=== PATIENT | female | born 1995 | race Caucasian/White ===

== ENCOUNTER → 2018-04-08 09:10 | Outpatient (CLI) | payer BC, MEDICAID, SELFPAY ==
[2018-04-08 10:39] LABS: TSH (W/Ref FT4) 1.37 uIU/mL (0.358-3.74)
[2018-04-09 16:42] LABS: Bile Acids, Total 9 mcmol/L (<=10)
== END ==
PROVIDERS: PCP Family Medicine; Visit Provider Midwife
DX: E03.9 Hypothyroidism, unspecified (principal); O99.713 Diseases of the skin and subcutaneous tissue complicating pregnancy, third trimester
CPT/HCPCS: 36415; 82239; 84443

== ENCOUNTER 2018-04-23 16:14 | Outpatient (REF) | payer BC, SELFPAY | END 2018-04-23 16:34 | LOC: LBN 16:14 | PROVIDERS: PCP Family Medicine; Visit Provider Advanced Practice Midwife | DX: Z34.93 Encounter for supervision of normal pregnancy, unspecified, third trimester (principal); Z36.85 Encounter for antenatal screening for Streptococcus B | CPT/HCPCS: 87081 ==

== ENCOUNTER 2018-04-24 09:06 | Outpatient (CLI) | payer BC, SELFPAY ==
[2018-04-26 21:05] LABS: Bile Acids, Total <1 mcmol/L (<=10)
== END 2018-04-24 09:26 ==
PROVIDERS: PCP Family Medicine; Visit Provider Advanced Practice Midwife
DX: Z34.93 Encounter for supervision of normal pregnancy, unspecified, third trimester (principal); Z3A.36 36 weeks gestation of pregnancy
CPT/HCPCS: 36415; 82239

== ENCOUNTER 2018-05-05 04:51 | Inpatient (IN) | payer BC, MEDICAID, SELFPAY ==
[2018-05-05 06:29] LABS: ROM Plus Positive
[2018-05-05 09:21] LABS: HCT 35.8 % (36.0-46.0); HGB 11.9 g/dL (12.0-15.5); Mean Corp. HGB Concentration 33.2 g/dL (32.0-36.0); Mean Corpuscular Hemoglobin 29.5 pg (27.0-33.0); Mean Corpuscular Volume 88.6 fL (80-95); Platelet Count 196 x1000/uL (130-400); RBC 4.04 m/cumm (4.00-5.20); RBC Distribution Width 13.5 % (11.7-14.6)
[2018-05-05 09:36] LABS: ALT 19 U/L (12-78); AST 19 U/L (15-37); Albumin 2.5 g/dL (3.4-5.0); Alkaline Phosphatase 173 U/L (46-116); Anion Gap 9.2 mmol/L (3-11); BUN 7 mg/dL (7-18); Bilirubin, Total 0.1 mg/dL (0.2-1.0); CO2 22.8 mmol/L (21.0-32.0); CREATININE 0.56 mg/dL (0.55-1.02); Calcium 8.3 mg/dL (8.5-10.1); Chloride 105 mmol/L (98-107); Glucose 146 mg/dL (70-100); Potassium 3.6 mmol/L (3.5-5.1); Sodium 137 mmol/L (136-145); Total Protein 6.3 g/dL (6.4-8.2)
[2018-05-05] MEDS: Lactated Ringers 1,000 ML 125 ML IV ×2 (10:47→18:41)
[2018-05-05] MEDS: Normal Saline Flush 10 ML SYR IVP (10:49)
[2018-05-06] MEDS: Lactated Ringers 1,000 ML 125 ML IV ×2 (02:42→06:17)
[2018-05-06] MEDS: Bupivacaine 0.25% Pres-Free 30 ML VIAL (04:15)
[2018-05-06] MEDS: fentaNYL 100 MCG/2 ML VIAL EP (04:15)
[2018-05-06 10:59] LABS: HGB 11.5 g/dL (12.0-15.5); Mean Corp. HGB Concentration 32.9 g/dL (32.0-36.0); Mean Corpuscular Hemoglobin 28.9 pg (27.0-33.0); Mean Corpuscular Volume 87.9 fL (80-95); Mean Platelet Volume 11.9 fL (8.0-11.0); Platelet Count 179 x1000/uL (130-400); RBC 3.98 m/cumm (4.00-5.20); RBC Distribution Width 13.6 % (11.7-14.6); White Blood Cell Count 16.17 k/cumm (4.4-10.8)
[2018-05-07] MEDS: Acetaminophen 325 MG TAB 650 MG PO ×2 (00:53→06:39)
[2018-05-07] MEDS: Ibuprofen 600 MG TAB PO ×2 (00:54→06:38)
[2018-05-07 12:06] LABS: HCT 31.5 % (36.0-46.0); HGB 10.4 g/dL (12.0-15.5); Mean Corpuscular Hemoglobin 29.5 pg (27.0-33.0); Mean Corpuscular Volume 89.5 fL (80-95); Mean Platelet Volume 11.7 fL (8.0-11.0); Platelet Count 191 x1000/uL (130-400); RBC 3.52 m/cumm (4.00-5.20); White Blood Cell Count 12.99 k/cumm (4.4-10.8)
[2018-05-08] MEDS: Prenatal Multivitamin w/CA,FE TAB 1 TAB PO (10:16)
[2018-05-08] MEDS: Hamamelis Leaf/Glycerin 100 EACH BOX PR (11:26)
[2018-05-08] MEDS: Docusate Sodium 100 MG CAP PO (11:26)
== END 2018-05-08 13:25 | disposition home or self-care (01) | DRG 775 ==
PROVIDERS: Advanced Practice Midwife; Admitting Provider Midwife; PCP Family Medicine; Visit Provider Advanced Practice Midwife
DX: O70.0 First degree perineal laceration during delivery (principal); Z37.0 Single live birth; O42.02 Full-term premature rupture of membranes, onset of labor within 24 hours of rupture; O75.89 Other specified complications of labor and delivery; R00.0 Tachycardia, unspecified; Z3A.38 38 weeks gestation of pregnancy; O99.344 Other mental disorders complicating childbirth; F41.9 Anxiety disorder, unspecified; Z14.1 Cystic fibrosis carrier
CPT/HCPCS: 36415; 80053; 84112; 85027; 86850; 86900; 86901; J3010; J3490

== ENCOUNTER 2019-01-20 09:26 | Outpatient (CLI) | payer BC, SELFPAY ==
[2019-01-20 11:30] LABS: HCT 39.7 % (36.0-46.0); HGB 13.1 g/dL (12.0-15.5); Mean Corpuscular Hemoglobin 28.9 pg (27.0-33.0); Mean Corpuscular Volume 87.4 fL (80-95); Mean Platelet Volume 11.3 fL (8.0-11.0); Platelet Count 229 x1000/uL (130-400); RBC 4.54 m/cumm (4.00-5.20); White Blood Cell Count 5.06 k/cumm (4.4-10.8)
[2019-01-20 12:28] LABS: TSH 10.56 uIU/mL (0.358-3.74)
== END 2019-01-20 09:46 ==
PROVIDERS: PCP Family Medicine; Visit Provider Family Medicine
DX: E03.9 Hypothyroidism, unspecified (principal); R01.1 Cardiac murmur, unspecified
CPT/HCPCS: 36415; 85027; 84443

== ENCOUNTER 2019-07-05 15:13 | Outpatient (REF) | payer BC, SELFPAY ==
--- NOTE | 2019-07-05 14:10 | PAPFT_PTH ---
PATIENT: Kassandra Ortiz LOC: [facility] U#:[id number] AGE/SX: 23/F ROOM: RE07/05/[address]: Rosemarie Christiansen RN : 1995 BED: DIS: 07/05/2019 SPEC #: [id number] RECD: 07/05/19 18:10 STATUS: ADRIANE REPatrick #: [id number] EDELMIRA: 07/05/19 14:[address]: Rosemarie Christiansen DEPT: [facility] Cytology RECD BY: Herlinda Mcnamara ENTERED: 07/05/19 18:11 SP TYPE: PAPFT OTHR DR: Sam Butt MD Tissues: 1 - CX/ENDOCX FOR PAP SMEARS Procedures: PAP THIN PREP/UVM Screening Comments: [id number] (CHLAMYDIA/GC)
[2019-07-06 14:04] LABS: Chlamydia Result Negative (Negative)
[2019-07-06 15:43] LABS: GC Result Negative (Negative)
== END 2019-07-05 15:33 ==
LOC: LBN 15:13
PROVIDERS: PCP Family Medicine; Visit Provider Advanced Practice Midwife
DX: Z11.3 Encounter for screening for infections with a predominantly sexual mode of transmission (principal); Z12.4 Encounter for screening for malignant neoplasm of cervix
CPT/HCPCS: 87491; 87591; 88142

== ENCOUNTER 2020-05-07 01:53 | Outpatient (CLI) | payer BC, SELFPAY ==
[2020-05-07 12:21] LABS: TSH 2.04 uIU/mL (0.36-3.74)
== END 2020-05-07 02:13 ==
PROVIDERS: PCP Family Medicine; Visit Provider Family Medicine
DX: E03.9 Hypothyroidism, unspecified (principal)
CPT/HCPCS: 36415; 84443

== ENCOUNTER 2021-12-05 02:30 | Outpatient (CLI) | payer MEDICAID, SELFPAY ==
[2021-12-05 11:49] LABS: Anion Gap 6.3 mmol/L (3-11); BUN 14 mg/dL (7-18); CO2 28.7 mmol/L (21.0-32.0); CREATININE 0.6 mg/dL (0.55-1.02); Calcium 9.4 mg/dL (8.5-10.1); Chloride 103 mmol/L (98-107); Glucose 94 mg/dL (74-106); Sodium 138 mmol/L (136-145); TSH (W/Ref FT4) 0.95 uIU/mL (0.36-3.74)
== END 2021-12-05 02:31 | disposition home or self-care (01) ==
PROVIDERS: PCP Family Medicine
DX: G47.00 Insomnia, unspecified (principal); Z00.00 Encounter for general adult medical examination without abnormal findings
CPT/HCPCS: 36415; 80048; 84443

== ENCOUNTER 2022-01-09 16:29 | Outpatient (CLI) | payer MEDICAID, SELFPAY ==
[2022-01-09 15:31] LABS: FREE T4 1.03 ng/dL (0.76-1.46); TSH 1.01 uIU/mL (0.36-3.74)
== END 2022-01-09 16:30 | disposition home or self-care (01) ==
LOC: LBO 16:32
PROVIDERS: PCP Family Medicine; Visit Provider Nurse Practitioner Family
DX: E03.9 Hypothyroidism, unspecified (principal)
CPT/HCPCS: 36415; 84439; 84443

== ENCOUNTER 2022-01-22 12:06 | Outpatient (CLI) | payer MEDICAID, SELFPAY | END 2022-01-22 12:07 | disposition home or self-care (01) | LOC: LBO 12:07 | PROVIDERS: PCP Family Medicine; Visit Provider Advanced Practice Midwife | DX: O20.8 Other hemorrhage in early pregnancy; Z3A.01 Less than 8 weeks gestation of pregnancy | CPT/HCPCS: 36415; 84702 ==

== ENCOUNTER 2022-03-11 13:48 | Outpatient (CLI) | payer MEDICAID, SELFPAY ==
[2022-03-11 15:39] LABS: Abs Immature Grans 0.03 10^3/uL (0.0-0.06); Absolute Basophil Count 0.03 10^3/uL (0.0-0.2); Absolute Eosinophil Count 0.13 10^3/uL (0.0-0.7); Absolute Lymphocyte Count 1.41 10^3/uL (1.2-3.4); Absolute Neutrophil Count 4.25 10^3/uL (1.2-6.7); Basophils % 0.5; HGB 12.6 g/dL (11.2-15.7); Immature Grans % 0.5; Lymphocytes % 22.2; MCH 30.2 pg (27.0-33.0); MCHC 34.1 % (32.0-36.0); MCV 89 fL (80-95); MPV 10.6 fL (8.0-11.0); Monocytes % 7.9; Neutrophils % 66.9; Platelet Count 263 10^3/uL (130-400); RBC 4.17 10^6/uL (3.93-5.22); RDW 12.8 % (11.7-14.6); RDW-SD 41.6 fL; WBC 6.35 10^3/uL (4.4-10.8)
== END 2022-03-11 13:49 | disposition home or self-care (01) ==
LOC: LBO 13:50
PROVIDERS: PCP Family Medicine; Visit Provider Obstetrics & Gynecology
DX: O02.1 Missed abortion (principal); Z01.818 Encounter for other preprocedural examination; Z01.812 Encounter for preprocedural laboratory examination
CPT/HCPCS: 36415; 86850; 86900; 86901; 85025

== ENCOUNTER 2022-03-11 16:46 | Outpatient (REF) | payer MEDICAID, SELFPAY ==
[2022-03-11 20:14] LABS: Source Nasal/Nares
[2022-03-12 07:07] LABS: COVID-19 PCR Negative (Negative)
== END 2022-03-11 16:47 | disposition home or self-care (01) ==
LOC: LBN 16:46
PROVIDERS: PCP Family Medicine; Visit Provider Obstetrics & Gynecology
DX: Z20.822 Contact with and (suspected) exposure to COVID-19 (principal); Z01.818 Encounter for other preprocedural examination
CPT/HCPCS: 87635

== ENCOUNTER 2022-03-12 09:10 | Day surgery (SDC) | payer MEDICAID, SELFPAY ==
[2022-03-12 09:32] VITALS: BP 121/87; PULSE 105; RESP 18; TEMP 36.7; O2SAT 100
[2022-03-12] MEDS: DOXYCYCLINE 100 MG in Normal Saline 100 ML IVPB (09:40)
[2022-03-12] MEDS: Lactated Ringers 1,000 ML 125 ML IV (09:41)
--- NOTE | 2022-03-12 09:59 | W.ANESPRE ---
General Info Date of Service Date Performed: 03/12/22 Height: 5 ft Weight: 51.6 kg Body Mass Index (BMI): 22.1 Surgical Procedure: Operation Date: 03/12/22 10:25 Proposed Procedure Side Surgeon p D&C, Suction Completion Adore Singh DO Meds Allergies and Home Medications Allergies Allergy/AdvReac Type Severity Reaction Status Date / Time No Known Allergies Allergy Unverified 03/11/22 15:36 Home Medication Medication Instructions Recorded levothyroxine 50 mcg tablet 50 mcg PO DAILY #90 tabs 05/20/21 vits no.126-ferrous fum 1 tab PO DAILY 01/09/22 28 mg iron-folic acid 800 mcg tablet (Classic ) Current Visit Medications: Current Medications Generic Name Dose Route Start Last Admin Trade Name Estefany PRN Reason Stop Dose Admin Ringer's Solution 1,000 mls @ 125 mls/hr 03/12/22 06:00 03/12/22 09:41 IV 04/11/22 23:59 125 mls/hr INFUSION ERIC Administration Doxycycline Hyclate 100 mg/ 100 mls @ 100 mls/hr 03/12/22 08:00 03/12/22 09:40 Sodium Chloride IVPB 03/12/22 16:00 100 mls/hr PREOP ERIC Administration IV Miscellaneous Supplies 1 each 03/12/22 06:00 Iv Access IV 04/11/22 23:59 DIRECTED ERIC Sodium Chloride 0 ml 03/12/22 06:00 Normal Saline Flush 10 Ml Syr IV 04/11/22 23:59 PRN PRN Sodium Chloride 0 ml 03/12/22 06:00 Normal Saline 10 Ml Vial IJ 04/11/22 23:59 DIRECTED PRN Sterile Water 0 ml 03/12/22 06:00 Water,Injection,Sterile 10 Ml Vial IJ 04/11/22 23:59 DIRECTED PRN PFSH Active Problems Active Problems: Problem Status Onset Code Lactose intolerance 04/08/12 E73.9 Systolic ejection murmur R01.1 Insomnia G47.00 Positive test Z32.01 Threatened , antepartum O20.0 Missed O02.1 Pre-op testing Z01.818 Medical History Medical History Disorder of stature Spon w/o complication (07/27/17) Surgical History Surgical History (Updated 03/12/22 @ 09:31 by Shira Mota RN) [place] teeth extracted Tobacco Smoking/Tobacco Use Status: Never Passive smoking exposure: Yes Second hand exposure: Yes Alcohol Alcohol Intake: current Alcohol intake frequency: a few times a month Alcohol type: beer and wine Substance Use Substance use: Daily Substance use type: former substance user and marijuana Counseling provided: provider counseling Details: last smoked marijuana 3 days ago Prental History History 4 Para 1 Hx # Term Pregnancies 1 Multiple births 0 Hx # Pregnancies 0 Ectopic pregnancies 0 AB induced 0 Hx Number of Living Children 1 AB spontaneous 3 Past Pregnancies Del. Date GA/Weeks # Preg Succ Route Wgt Sex Labor Lgth Anesthesia Location [facility] 05/06/18 38 No vaginal 2806.603 g Female 33 hours 55 min regional Verónica Sapp 02/22/22 10 No No Delivery Date: 05/06/18 Last Updated by: Kaye Sapp IOL for PROM Vital Signs and Lab Results Vital Signs Most Recent Vital Signs in EMR: Most Recent Vital Signs Temp Pulse Resp BP Pulse Ox 36.7 C 105 H 18 121/87 100 03/12/22 09:32 03/12/22 09:32 03/12/22 09:32 03/12/22 09:32 03/12/22 09:32 Lab Results Blood Type / Crossmatch: Patient ABO/Rh B Positive 03/11/22 Antibody Screen NEGATIVE 03/11/22 Complete Blood Count: White Blood Count 6.35 10^3/uL (4.4-10.8) 03/11/22 15:33 Red Blood Count 4.17 10^6/uL (3.93-5.22) 03/11/22 15:33 Hemoglobin 12.6 g/dL (11.2-15.7) 03/11/22 15:33 Hematocrit 37.0 % (36.0-46.0) 03/11/22 15:33 Platelet Count 263 10^3/uL (130-400) 03/11/22 15:33 Complete Metabolic Panel: No Data to Display Liver Function Panel: No Data to Display Coagulation Panel: No Data to Display Cardiac Panel: No Data to Display Arterial Blood Gas: No Data to Display Venous Blood Gas: No Data to Display Pancreas Panel: No Data to Display Thyroid Panel: No Data to Display Infectious Disease: Coronavirus (COVID-19)(PCR) Negative (Negative) 03/11/22 15:05 Coronavirus 2019 Source Nasal/Nares 03/11/22 15:05 Blood Cultures: No Data to Display Toxicology Panel: No Data to Display Panel: No Data to Display Anesthesia Assessment and Plan Anesthesia History Personal History: No History of Anesthesia Complications Family History: No Family History of Anesthesia Complications Exercise Tolerance Exercise Tolerance: Metabolic Equivalents>4 Pertinent Negatives Pertinent Negatives: No Symptoms of GERD, No Major Cardiovascular Symptoms or Complaints, No Major Pulmonary Symptoms or Complaints and No History of CVA/TIA Cardiac & Pulmonary Exam Cardiac Exam: Normal S1/S2 Heart Sounds Pulmonary Exam: Clear Bilateral Breath Sounds Implantable Cardiac Device Does patient have a Pacemaker or an ICD?: No Airway Exam Known Difficult Airway: No Mallampati Class: 2 Mouth Opening: Normal (> 3cm) Thyromental Distance: Greater than 3 cm Neck Range of Motion: Full ROM Neck Circumference: Normal Teeth Condition: Normal Dentition ASA Classification ASA Score: ASA 1 Emergency Case?: No NPO Status NPO Status: NPO Clears >2 hours, Solids >8 hours Status Status: Other (Non viable 6 week ) Anesthesia Plan Resuscitation Status: Full Code Anesthesia Technique: General Anesthesia Airway Planned: Natural Airway Monitors Used: Standard Monitors
[2022-03-12 10:28] VITALS: BMI 22.1
--- NOTE | 2022-03-12 10:59 | POCSPONT_PTH ---
PATIENT: Kassandra Ortiz LOC: [facility] U#:[id number] AGE/SX: 26/F ROOM: RE03/12/[address]: Adore Singh DO : 1995 BED: DIS: 03/12/2022 SPEC #: [id number] RECD: 03/12/22 12:57 STATUS: ADRIANE REQ #: [id number] EDELMIRA: 03/12/22 10:[address]: Adore Singh DEPT: Surgical Specimen RECD BY: Herlinda Mcnamara ENTERED: 03/12/22 12:58 SP TYPE: POCSPBETTY OLIVAS DR: Ashly Hood Tissues: 1 - ,SPONTANEOUS Procedures: GROSS AND MICRO LEVEL 4 Comments: [id number]
[2022-03-12 11:13] VITALS: BP 115/86; PULSE 99; RESP 16; TEMP 36.4; O2SAT 100
--- NOTE | 2022-03-12 11:13 | ROE_ITS ---
Date of service: 03/12/22 Time of Service: 11:13 Operative Note Operative Note DATE OF PROCEDURE: 03/12/22 PRE-OP DIAGNOSIS: Incomplete miscarriage POST-OP DIAGNOSIS: same PROCEDURE: Dilation and curettage with suction SURGEON: Adore Singh ANESTHESIA TYPE: General:No Airway Refer to Anesthesia Record ESTIMATED BLOOD LOSS: 100 PATHOLOGY: other (Products of conception) COMPLICATIONS: None Patient was transported to: same day Patient's condition: stable Indications: Incomplete miscarriage Findings: Moderate products of conception Procedure Description: Patient is a 26-year-old female known to our practice who is known to have an incomplete miscarriage. She had undergone watchful waiting for her 6-week embryonic demise with no spontaneous miscarriage. Risk benefits and alternatives of completion dilation and curettage were explained to the patient. She did request surgical intervention. Full informed consent was obtained. She was taken the operating suite with an IV running where she was placed in the dorsal supine position. General anesthesia administered. She was then placed in the modified dorsal lithotomy position and prepped and draped in the usual sterile fashion. Exam under anesthesia revealed a uterus that was midline and mobile and approximately 6 to 8 weeks size. Speculum was inserted into the vaginal vault and an Allis clamp used to grasp the anterior lip of the cervix. Cervical os dilated to the point that a 7 Taiwanese suction curette could be passed with ease and with gentle suction to a pressure of 60 mmHg the uterine contents were evacuated. With a second sharp curettage, coarse cry of the uterus could be felt in all 4 quadrants. Second passage of the suction curette was made with scant return of tissue. At this point, Allis clamp was removed and exam under anesthesia revealed a uterus that was midline and mobile and well contracted. Speculum was removed and the patient was returned to the dorsal supine position. She awoke from anesthesia without difficulty. She was taken to the postanest hesia care unit in stable condition. Findings: 6 to 8 weeks size uterus, and moderate products of conception Complications: None apparent EBL: 100 mL Pathology: Products of conception Fluids: Crystalloid per anesthesia
--- NOTE | 2022-03-12 11:36 | W.ANESPOSTOP ---
Postoperative Evaluation Date, Time and Location Date Performed: 03/12/22 Time Performed: 11:36 Patient Location: Day Surgery Unit Vital Signs Most Recent Imported Vital Signs: Most Recent Vital Signs Temp Pulse Resp BP Pulse Ox 36.4 C L 99 H 18 115/86 100 03/12/22 11:13 03/12/22 11:13 03/12/22 09:32 03/12/22 11:13 03/12/22 11:13 Pain Score Most Recent Pain Score: Most Recent Pain Score Pain Level 0 03/12/22 09:32 Assessment Mental Status: Awake (Alert & Oriented to Patient Baseline) Airway and Respiratory Function: Patent airway with normal (patient baseline) respiratory exam Cardiovascular Function: Hemodynamically Stable Hydration Status: Adequately Hydrated Nausea & Vomiting: No Nausea or Vomiting Pain: Pain is tolerable per patient (Cramping, tolerable) Peripheral Nerve Block: Patient did not receive a nerve block
[2022-03-12 11:50] VITALS: BP 123/86; PULSE 85; RESP 18; TEMP 36.4; O2SAT 100
== END 2022-03-12 12:30 | disposition home or self-care (01) ==
PROVIDERS: PCP Family Medicine; Visit Provider Obstetrics & Gynecology
PROC: (CPT 59841; principal; 2022-03-12 10:15)
DX: O03.4 Incomplete spontaneous abortion without complication (principal); Z3A.01 Less than 8 weeks gestation of pregnancy
CPT/HCPCS: 59812; 88305; J1100; J1885; J2250; J2405; J2704

== ENCOUNTER 2022-05-21 16:36 | Outpatient (REF) | payer MEDICAID, SELFPAY ==
--- NOTE | 2022-05-21 11:50 | PAPFT_PTH ---
PATIENT: Kassandra Ortiz LOC: [facility] U#:[id number] AGE/SX: 26/F ROOM: RE05/21/[address]: Ashly Hood : 1995 BED: DIS: 05/21/2022 SPEC #: [id number] RECD: 05/22/22 13:15 STATUS: ADRIANE REPatrick #: [id number] EDELMIRA: 05/21/22 11:[address]: Ashly Hood DEPT: [facility] Cytology RECD BY: Herlinda Mcnamara Tissues: 1 - CX/ENDOCX FOR PAP SMEARS Procedures: PAP THIN PREP/UVM Screening Comments: [id number]
== END 2022-05-21 16:37 | disposition home or self-care (01) ==
LOC: LBN 16:36
PROVIDERS: PCP Family Medicine; Visit Provider Family Medicine
DX: Z12.4 Encounter for screening for malignant neoplasm of cervix (principal)
CPT/HCPCS: 88142

== ENCOUNTER 2022-08-26 20:12 | Outpatient (CLI) | payer MEDICAID, SELFPAY | END 2022-08-26 20:13 | disposition home or self-care (01) | LOC: LBO 20:13 | PROVIDERS: PCP Family Medicine; Visit Provider Obstetrics & Gynecology | DX: O20.0 Threatened abortion (principal) | CPT/HCPCS: 36415; 84702 ==

== ENCOUNTER 2022-09-08 15:02 | Outpatient (CLI) | payer MEDICAID, SELFPAY ==
--- NOTE | 2022-09-08 13:30 | DI.US_ITS ---
Exam(s) US OB 1ST TRIMESTER EXAM: US OB 1ST TRIMESTER CLINICAL HISTORY: ? Subchoriomic bleed vs 2nd gest sac Z34.81 O20.0 THREATENED . COMPARISON: No exams were available for comparison TECHNIQUE: Transabdominal Transvaginal first trimester obstetrical ultrasound performed. FINDINGS: Sonographic images demonstrate a single intrauterine gestation. There is an adjacent crescentic dana ection consistent with subchorionic hemorrhage. This measures 2.7 x 4.7 x 4.5 cm A yolk sac and pole are seen. Sonographically assessed gestational age based upon crown-rump length of 2.4 cm is: 9 weeks 1 day Estimated date of delivery based on this ultrasound is: 12 April 2023 Estimated date of delivery based upon LMP: 13 April 2023 heart rate motion is Dopplered at: 175 bpm. A small amount of free fluid is noted in the cul-de-sac. Both ovaries appear sonographically normal. Pelvic Measurments Uterus: 12.6 x 6.9 x 9.2 cm Rt Ovary: 2.5 x 2.4 x 1.7 cm Lt Ovary: 2.8 x 1.7 x 2.2 cm 2.5 centimeter corpus luteal cyst. IMPRESSION: Single live intrauterine gestation 9 weeks 1 day Subchorionic hemorrhage. DATA REPOSITORY:
== END 2022-09-08 15:22 ==
LOC: DI 15:03
PROVIDERS: PCP Family Medicine; Visit Provider Obstetrics & Gynecology
DX: O46.8X1 Other antepartum hemorrhage, first trimester (principal); Z3A.09 9 weeks gestation of pregnancy
CPT/HCPCS: 76801

== ENCOUNTER 2022-09-23 03:46 | Outpatient (CLI) | payer MEDICAID, SELFPAY ==
[2022-09-23 10:32] LABS: Abs Immature Grans 0.04 10^3/uL (0.0-0.06); Absolute Basophil Count 0.03 10^3/uL (0.0-0.2); Absolute Eosinophil Count 0.26 10^3/uL (0.0-0.7); Absolute Lymphocyte Count 1.71 10^3/uL (1.2-3.4); Absolute Monocyte Count 0.38 10^3/uL (0.1-0.8); Absolute Neutrophil Count 6.69 10^3/uL (1.2-6.7); Basophils % 0.3; Eosinophils % 2.9; HCT 36.4 % (36.0-46.0); Immature Grans % 0.4; Lymphocytes % 18.8; MCH 29.3 pg (27.0-33.0); MCV 89 fL (80-95); MPV 10.6 fL (8.0-11.0); Monocytes % 4.2; Neutrophils % 73.4; Platelet Count 293 10^3/uL (130-400); RDW 12.5 % (11.7-14.6); RDW-SD 40.6 fL; WBC 9.11 10^3/uL (4.4-10.8)
[2022-09-23 11:33] LABS: TSH (W/Ref FT4) 0.84 uIU/mL (0.36-3.74)
[2022-09-24 09:50] LABS: HIV-1/2 Ag & Ab Screen Negative (Negative)
[2022-09-24 09:54] LABS: Hepatitis B Surface Ag Negative (Negative)
[2022-09-24 10:30] LABS: Hepatitis C Ab w Rflx HCV PCR Negative (Negative)
[2022-09-24 10:42] LABS: Rubella IgG Ab (UVM) Positive (See Note); Varicella IgG Antibody Positive (See Note)
[2022-09-24 14:51] LABS: Syphilis IgG w/Reflex Nonreactive (Nonreactive)
== END 2022-09-23 03:47 | disposition home or self-care (01) ==
LOC: LBO 03:46
PROVIDERS: PCP Family Medicine; Visit Provider Advanced Practice Midwife
DX: O99.281 Endocrine, nutritional and metabolic diseases complicating pregnancy, first trimester (principal); E03.9 Hypothyroidism, unspecified; Z3A.11 11 weeks gestation of pregnancy
CPT/HCPCS: 36415; 86787; 86803; 86850; 86900; 86901; 87340; 87389; 84443; 85025; 86762; 86780

== ENCOUNTER 2022-09-23 16:17 | Outpatient (REF) | payer MEDICAID, SELFPAY ==
[2022-09-23 13:23] LABS: *AMPHETAMINES SCREEN URINE Negative (Negative); *BARBITURATES SCREEN URINE Negative (Negative); *BENZODIAZEPINES SCREEN URINE Negative (Negative); Cannabinoids THC Negative (Negative); Cocaine Screen,Urine Negative (Negative); METHADONE URINE SCREEN Negative (Negative); OPIATES URINE SCREEN Negative (Negative)
[2022-09-23 13:24] LABS: Tricyclic Antidepressants Negative (Negative)
[2022-09-24 14:52] LABS: Chlamydia Result Negative (Negative); GC Result Negative (Negative)
[2022-09-27 15:24] LABS: Buprenorphine Negative ng/mL (Cutoff: 5.0); Norbuprenorphine Negative ng/mL (Cutoff: 2.5)
== END 2022-09-23 16:18 | disposition home or self-care (01) ==
LOC: LBN 16:17
PROVIDERS: PCP Family Medicine; Visit Provider Advanced Practice Midwife
DX: O99.281 Endocrine, nutritional and metabolic diseases complicating pregnancy, first trimester (principal); E03.9 Hypothyroidism, unspecified; Z3A.11 11 weeks gestation of pregnancy
CPT/HCPCS: 80307; 80348; 87491; 87591; 87086; 87480; 87510; 87660

== ENCOUNTER 2022-10-21 16:09 | Outpatient (CLI) | payer MEDICAID, SELFPAY ==
--- NOTE | 2022-10-21 09:30 | DI.US_ITS ---
Exam(s) US OB CERVICAL LENGTH EXAM: US OB CERVICAL LENGTH CLINICAL HISTORY: spotting throughout ,threatened miscarriage,O20.0. TECHNIQUE: Transvaginal cervical length determination ultrasound was performed. COMPARISON: US POCUS EXAM from 10/08/2022 FINDINGS: Cervical length measurements average 3.7 cm The endocervical canal contains some fluid and measures 2.5 millimeters. Placenta is right-sided and distal tip of the placenta is approximately 2.8 cm from the internal cerv ical os. Single viable fetus with heart rate recorded at 148 BPM. Previously described lower uterine segment subchorionic hemorrhage is again noted, presently measurin g 5.2 x 1.3 x 4.9 cm. IMPRESSION: Cervical length is 3.7 cm.. There is fluid in the cervical canal. Lower uterine segment subchorionic hemorrhage measuring approximately 52 by by 49 mm. Viable fetus with heart rate 148 BPM. DATA REPOSITORY:
== END 2022-10-21 16:29 ==
LOC: DI 16:09
PROVIDERS: PCP Family Medicine; Visit Provider Advanced Practice Midwife
DX: O20.8 Other hemorrhage in early pregnancy (principal); Z3A.15 15 weeks gestation of pregnancy
CPT/HCPCS: 76815

== ENCOUNTER 2022-11-18 02:05 | Outpatient (CLI) | payer MEDICAID, SELFPAY ==
--- NOTE | 2022-11-18 06:45 | DI.US_ITS ---
Exam(s) US OB 2-3 TRIMESTER EXAM: US OB 2-3 TRIMESTER CLINICAL HISTORY: , z34.90. TECHNIQUE: Transabdominal obstetrical ultrasound performed. COMPARISON: US POCUS EXAM from 10/08/2022 US US OB CERVICAL LENGTH from 10/21/2022 FINDINGS: Number of fetuses: One. position: Variable Placental grade: 0-1 Placental location: Fundal. No evidence of previa. Cervix: Length 4.0 cm. Closed. No fluid in the endocervical canal. BIOMETRIC DATA: BPD: 47mm = 20+ 1 weeks HC: 172mm = 19+ 5 weeks AC: 154mm = 20+ 4 weeks FL: 30mm = 19+ 2 weeks Cisterna Magna: 4.3 mm Cerebellum: 2.1 cm EFW: 322 grms 88% Composite Age: 20+ 0 weeks EDC by US: 07 April 2023 Heart Rate: 139BPM Amniotic fluid : Amount of fluid is within normal limits. ANATOMICAL SURVEY: Four-chambered heart: Unremarkable. LVOT: Unremarkable. RVOT: Unremarkable. Left-sided stomach: Unremarkable. urinary bladder: Unremarkable. Bilateral kidneys: Unremarkable. Three-vessel cord: Unremarkable. Cord insertion: Unremarkable. Posterior fossa:Unremarkable. ventricles: Unremarkable. nose: Unremarkable. lips: Unremarkable. palate: Unremarkable. spine: Unremarkable. Two arms and two legs: Unremarkable. IMPRESSION: 1. Single live intrauterine gestation composite age 20+ 0 weeks. 2. Normal anatomic survey. DATA REPOSITORY:
== END 2022-11-18 02:25 ==
LOC: DI 02:05
PROVIDERS: PCP Family Medicine; Visit Provider Advanced Practice Midwife
DX: Z34.92 Encounter for supervision of normal pregnancy, unspecified, second trimester (principal); Z3A.20 20 weeks gestation of pregnancy
CPT/HCPCS: 76805

== ENCOUNTER 2023-01-14 04:35 | Outpatient (CLI) | payer MEDICAID, SELFPAY ==
[2023-01-14 10:46] LABS: HGB 11.3 g/dL (11.2-15.7); MCH 30.1 pg (27.0-33.0); MCHC 33.2 % (32.0-36.0); MCV 90 fL (80-95); MPV 11.4 fL (8.0-11.0); Platelet Count 233 10^3/uL (130-400); RBC 3.76 10^6/uL (3.93-5.22); RDW 13.6 % (11.7-14.6); RDW-SD 43.9 fL; WBC 10.79 10^3/uL (4.4-10.8)
[2023-01-14 11:22] LABS: Glucose,1 Hr (Glucola) 76 mg/dL (80-140)
[2023-01-14 11:37] LABS: TSH (W/Ref FT4) 0.75 uIU/mL (0.36-3.74)
== END 2023-01-14 04:36 | disposition home or self-care (01) ==
LOC: LBO 04:35
PROVIDERS: Advanced Practice Midwife; PCP Family Medicine; Visit Provider Advanced Practice Midwife
DX: Z34.92 Encounter for supervision of normal pregnancy, unspecified, second trimester (principal); Z3A.27 27 weeks gestation of pregnancy
CPT/HCPCS: 36415; 82950; 85027; 84443

== ENCOUNTER 2023-03-17 15:09 | Outpatient (REF) | payer MEDICAID, SELFPAY ==
[2023-03-17 17:09] LABS: *AMPHETAMINES SCREEN URINE Negative (Negative); *BARBITURATES SCREEN URINE Negative (Negative); *BENZODIAZEPINES SCREEN URINE Negative (Negative); Cannabinoids THC Negative (Negative); Cocaine Screen,Urine Negative (Negative); METHADONE URINE SCREEN Negative (Negative); OPIATES URINE SCREEN Negative (Negative)
[2023-03-17 17:10] LABS: Tricyclic Antidepressants Negative (Negative)
[2023-03-24 14:47] LABS: Buprenorphine Negative ng/mL (Cutoff: 5.0); Norbuprenorphine Negative ng/mL (Cutoff: 2.5)
== END 2023-03-17 15:10 | disposition home or self-care (01) ==
LOC: LBN 15:09
PROVIDERS: PCP Family Medicine; Visit Provider Advanced Practice Midwife
DX: Z34.93 Encounter for supervision of normal pregnancy, unspecified, third trimester (principal); E03.9 Hypothyroidism, unspecified
CPT/HCPCS: 80307; 80348; 87081

== ENCOUNTER 2023-03-26 02:42 | Outpatient (CLI) | payer MEDICAID, SELFPAY ==
[2023-03-26 11:42] LABS: HCT 34.8 % (36.0-46.0); HGB 11.4 g/dL (11.2-15.7); MCH 27.6 pg (27.0-33.0); MCHC 32.8 % (32.0-36.0); MCV 84 fL (80-95); MPV 11.5 fL (8.0-11.0); Platelet Count 183 10^3/uL (130-400); RBC 4.13 10^6/uL (3.93-5.22); RDW 13.5 % (11.7-14.6); RDW-SD 41.5 fL; WBC 9.55 10^3/uL (4.4-10.8)
== END 2023-03-26 02:43 | disposition home or self-care (01) ==
LOC: LBO 02:43
PROVIDERS: PCP Family Medicine; Visit Provider Advanced Practice Midwife
DX: O99.013 Anemia complicating pregnancy, third trimester (principal); O99.283 Endocrine, nutritional and metabolic diseases complicating pregnancy, third trimester; E03.9 Hypothyroidism, unspecified; Z3A.37 37 weeks gestation of pregnancy
CPT/HCPCS: 36415; 85027; 84443

== ENCOUNTER 2023-04-02 11:08 | Outpatient (CLI) | payer MEDICAID, SELFPAY ==
[2023-04-02 11:23] VITALS: BP 116/77; PULSE 82; TEMP 36.8
[2023-04-02 11:27] VITALS: BP 116/77; PULSE 82
[2023-04-02 11:55] VITALS: BP 116/77; PULSE 82; TEMP 36.6
--- NOTE | 2023-04-02 12:00 | W.OBNST ---
Date of service: 04/02/23 Time of Service: 12:00 NST Evaluation Reason for NST Reasons for Nonstress Test: OTHER, SEE COMMENT (mild BP elevation in office today) Gestational Age Gestational Age in Weeks and Days: 38 Weeks and 3Days Test and Monitor Explained Test/Monitor Explained: Test Explained, Monitor Explained and Patient Verbalized Understanding Vital Signs Blood Pressure: 116/77 Pulse: 82 Temperature: 97.9 F Urine Results Urine Protein: Negative Urine Ketones: Negative Urine Glucose: Negative Urine Blood: Negative NST Information Date on Monitor: 04/02/23 Time on Monitor: 11:14 Date off Monitor: 04/02/23 Time off Monitor: 11:53 Total Time on Monitor: 39 NST Interventions: PO Hydration, Reposition Patient and Notify Provider Contraction Frequency: Occasional NST Evaluation Patient States Movement: Present FHR Baseline: 120 Variability: Moderate 6-25 bpm Accelerations: 15x15 Decelerations: None NST Results: Reactive Note Ultrasound Done: N/A. NST Note Note: NST is reactive and reassuring. BP is WNL at NST. Urine dip for protein negative in office. No CONROY's or visual changes. 1+ edema of lower extremity but she works 6 days a week. 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 Has appointment next week in office. RONNIE NST Reviewed and Verified by: Rosemary Nickerson
[2023-04-02 12:04] VITALS: BP 116/77; PULSE 82; TEMP 36.6
== END 2023-04-02 11:56 | disposition home or self-care (01) ==
LOC: BCD 11:12 → OBS 11:18
PROVIDERS: PCP Family Medicine; Visit Provider Advanced Practice Midwife
DX: O36.93X1 Maternal care for fetal problem, unspecified, third trimester, fetus 1 (principal); Z3A.40 40 weeks gestation of pregnancy
CPT/HCPCS: 59025

== ENCOUNTER 2023-04-03 17:35 | Inpatient (IN) | payer MEDICAID, SELFPAY ==
--- NOTE | 2023-04-03 18:06 | HPE_ITS ---
Date of service: 04/03/23 Time of Service: 18:06 Assessment and Plan Assessment and plan (1) PROM with onset of labor within 24 hours of rupture: Status: Acute Assessment and plan: A: 27 yo @ 38+4 wks PROM clear fluid, confirmed GBS+, category 1 tracing, afebrile Low risk for SD and PPH P: Admit to BC, CBC, T&S Begin PCN for GBS prophylaxis Observe for spontaneous onset of active labor Anticpate (2) Group B Streptococcus carrier, +RV culture, currently : Status: Acute OB-HPI Labor/Delivery History of Present Illness Reason for Visit: Possible SROM at term Chief Complaint: Suspected Rupture of Membranes , Associated Signs and Symptoms of Suspected ROM: Clear fluids began flowing from vagina @ 1700 this evening, occasional contraction, no bleeding, no nausea or vomiting.. LEO Calculator Estimated Delivery Date Method Current WG Current Estimate 04/13/23 LMP (Certain) 38w 4d Other Estimates 04/14/23 Ultrasound #1 38w 3d History of Present Expected Delivery Route/Plan - CNM FOB - John Petersen (2nd baby together, 1 previous child adopted out) BB - Estiven Petersen, yes to circ Hopes for unmedicated but open to epidural too GBS positive- prophylaxis in labor Specific Issues/Plan 1. First trimester bleeding- subchorionic hemorrhage. Spotting @ 13 wks - pelvic rest recommended 2. 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 3. Hypothyroidism. Levothyroxine 50mcg/day. 1st trimester TSH nml at initial OB 3a. TSH at 27 wks 0.75 3b. TSH @ 37 wks 0.9 4. Heart murmur - referred to PCP for evaluation- did not schedule an appointment. 5. History of anxiety - no meds currently. 6. Anemia at 36 wks, hgb 9.0 fingerstick, start iron, check CBC 1 wk: 11.4 Assessment: History Reviewed & Current Review of Systems Narrative: ROS completed and noncontributory other then HPI PFSH All Active Problems (Updated 04/03/23 @ 18:49 by Kaye Sapp) PROM with onset of labor within 24 hours of rupture (Acute) Group B Streptococcus carrier, +RV culture, currently (Acute) Anemia affecting (Acute) (Acute) Systolic ejection murmur (Chronic) left base. Medical History (Updated 04/03/23 @ 18:49 by Kaye Sapp) Irregular menses 06/01/2017. Normal prolactin elevated TSH. Started Levoxyl 25 mcg daily. Missed 01/30/2022 nonviable IUP at 6W0D EGA. Patient counseled regarding options for expectant management versus D&C. Surgical History Status post dilation and curettage Dilation and curettage for completion of miscarriage performed 03/12/2022. [place] teeth extracted Family History Mother Depression Hyperlipidemia Father No problems noted. Sister Depression Brother Depression Maternal Grandfather Alcohol abuse Asthma Paternal Grandfather No problems noted. Maternal Grandmother No problems noted. Paternal Grandmother No problems noted. Daughter No problems noted. 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 Pets and animals: Yes (Chickens) Pets and animals: cat(s) and dog(s) Sexually active: Yes Do you think of yourself as: straight/heterosexual Current gender identity: female What is your relationship status?: How often do you talk on the phone with friends or family?: twice per week How often do you get together with friends or relatives?: twice per week How often do you attend cheondoism or zoroastrianism services?: 1-3 times per year Do you belong to any clubs or organized social groups?: yes Panel score (0-1 are the most socially isolated patients): 3 What type of physical activity do you participate in: walking and yoga Duration: 30-45 minutes/day Frequency: 5-6 times per week Yee/Baptism: No preference Special yee needs: No Seatbelt use: always Helmet use: Yes Helmet use: always Drive intox or ride w/intox commercial trailer truck driver: No Working smoke detector in home: Yes Fire extinguisher in home: No Carbon monox detector in home: Yes Firearms in home: Yes Do you feel safe at home: Yes Do you feel safe in your relationship?: Yes Additional Social history: Enjoys arts and crafts, hiking. History History 5 Para 1 Hx # Term Pregnancies 1 Multiple births 0 Hx # Pregnancies 0 Ectopic pregnancies 0 AB induced 0 Hx Number of Living Children 1 AB spontaneous 3 Past Pregnancies Del. Date GA/Weeks # Preg Succ Route Wgt Sex Labor Lgth Anesth esia Location Prov Complic 12/20/15 6 No No 05/27/17 6 No No 05/06/18 38 No Yes vaginal 6 lb 3 oz Female 33 hours 55 min region valentina Sapp CNM 02/22/22 10 No No Delivery Date: 12/20/15 Last Updated by: Rosemary Nickerson CNM SAB without complication Delivery Date: 05/27/17 Last Updated by: Rosemary Nickerson CNM SAB without complications Delivery Date: 05/06/18 Last Updated by: Kaye Sapp IOL for PROM, epidural at 24 hrs labor. Kathia Delivery Date: 02/22/22 Last Updated by: Rosemary Vivar CNM D and C Meds Allergies and Home Medications Allergies Allergy/AdvReac Type Severity Reaction Status Date / Time No Known Allergies Allergy Unverified 04/02/23 10:31 Home Medications Medication Instructions Recorded Confirmed Type vits no.126-ferrous fum 1 tab PO DAILY 01/09/22 03/26/23 History 28 mg iron-folic acid 800 mcg tablet (Classic ) levothyroxine 50 mcg tablet 50 mcg PO DAILY #90 tabs 07/21/22 03/26/23 Rx ferrous sulfate 324 mg (65 mg 324 mg PO DAILY #30 tabs 03/17/23 03/26/23 Rx iron) tablet,delayed release Exam Physical Exam Vital signs: 122/70, P-96 Vital Signs Reviewed: Yes Constitutional Constitutional: no acute distress, average body habitus and cooperative Detailed Labor and Delivery Exam Dilation: 2 Effacement (%): 60 station: -2 Cervix position: mid Consistency: medium NUNEZ Score(Cervical Ripeness Score): 6 Amniotic Membrane Status: Ruptured Rupture Method: Spontaneous Amniotic Fluid: Clear Ferning: Present (gross ROM) Contraction Frequency(min): q3-4 Contraction Intensity: Mild Fetus A Heart Rate Baseline: 140 Monitor Accelerations: 15 X 15 Monitor Decelerations: None Variability: Moderate (6-25 BPM) Categories: Category I Est. Weight: 7 lb 0.877 oz Est. Weight: 3200 gms Date of Membrane Rupture: 04/03/23 Time of Membrane Rupture: 17:00 HEENT Exam HEENT Exam: Normal Neck Exam Neck Exam: Normal Chest/Brest/Axilla Exam Chest Exam: Normal Breast Exam Breast Exam: Not Done Respiratory Exam Respiratory Exam: Normal Cardiovascular Exam Cardiovascular Exam: Normal Abdominal Exam Abdominal Exam: Normal (Gravid, nontender) Rectal Exam Rectal Exam: Normal Exam Exam: Normal Extremities Exam Extremities Exam: Normal Back/Spine/Pelvis Exam Back Exam: Normal Pelvis Adequate: Yes (proven to 6'3) Skin Exam Skin Exam: Normal Neurological Exam Neurological Exam: Normal Psychiatric Exam Psychiatric Exam: Normal Results Results Group Beta Strep: Positive Blood Type: B+ Rubella Status: Immune Varicella Immunity: Immune Risk Assessment Risk for Shoulder Dystocia Historical/Initial OB: NEGATIVE FOR: Pelvic Abnormality, Pre- BMI>30, Previous Shoulder Dystocia or Previous Macrosomia 36 Weeks: POSITIVE FOR: Maternal Weight Gain>40lbs; NEGATIVE FOR: Current Gestational DM or EFW>4500gms Increased Risk?: No Delivery Plan @ 36wks: spont labor, Risk for Pre-Eclampsia Date Initiated/Initials: not indicated Yes, if one or more: NEGATIVE FOR: Hx Pre-E/Gest HTN, Chronic HTN, Multiple Gestation, Pre-gestational DM, Renal Disease, Systemic Lupus or APA Syndrome Yes, if 2 or more: NEGATIVE FOR: Nulliparity, Age>= 35 yrs, >10yr btwn pregnancies, BMI>30, ethinicty, Mother/Sister w/ Pre-E or Previous IUGR Risk for Post- Hemorrhage Initial: NEGATIVE FOR: Multiple Gestation, Previous PPH, Known Clotting Deficiency, Grand Multiparity or Anticoagulation 36 Weeks: POSITIVE FOR: Anemia, hgb<10; NEGATIVE FOR: Low platelets(thrombocytopenia), Gestational HTN or Pre-E, Polyhydraminios or EFW>4500gms At Risk?: No Interventions: start iron supplement at 36 wks Counseled re: Active Management: No Risks Reviewed Risks Reviewed Upon Admission: Yes
[2023-04-03 18:26] VITALS: BP 122/70; PULSE 96
[2023-04-03 18:26] LABS: HCT 34.9 % (36.0-46.0); HGB 11.4 g/dL (11.2-15.7); MCH 27.9 pg (27.0-33.0); MCHC 32.7 % (32.0-36.0); MCV 86 fL (80-95); MPV 12.3 fL (8.0-11.0); Platelet Count 185 10^3/uL (130-400); RBC 4.08 10^6/uL (3.93-5.22); RDW 13.9 % (11.7-14.6); RDW-SD 42.8 fL; WBC 11.35 10^3/uL (4.4-10.8)
[2023-04-03 18:42] VITALS: BP 122/70; PULSE 96; RESP 20; TEMP 36.4
[2023-04-03] MEDS: Penicillin G POT. 5,000,000 UNITS in Normal Saline 100 ML 200 UNITS IVPB (19:35)
[2023-04-03] MEDS: Normal Saline Flush 10 ML SYR IVP ×3 (19:35→23:38)
[2023-04-03] MEDS: Lactated Ringers 1,000 ML 125 ML IV (19:40)
[2023-04-03] MEDS: Penicillin G POT. 3,000,000 UNITS in Normal Saline 50 ML 100 UNITS IVPB (23:31)
[2023-04-03 23:41] VITALS: BP 114/67; PULSE 74; TEMP 36.6
[2023-04-04] VITALS (40 sets, daily range): BP systolic 61–159; BP diastolic 30–85; PULSE 81–129; RESP 14; TEMP 36.4–36.8; O2SAT 93–100; BMI 31.6
[2023-04-04] MEDS: Penicillin G POT. 3,000,000 UNITS in Normal Saline 50 ML 100 UNITS IVPB ×5 (03:36→20:44)
[2023-04-04] MEDS: Normal Saline Flush 10 ML SYR IVP ×2 (03:37→07:46)
[2023-04-04] MEDS: Levothyroxine 50 MCG TAB PO (06:22)
--- NOTE | 2023-04-04 06:28 | W.PM.OBNL1 ---
Date of service: 04/04/23 Time of Service: 06:28 Informed Consent Informed Consent: Induction of Labor and Risk,Benefits,Alternatives Discussed Pelvic Exam Dilation: 2.5 Effacement (%): 70 station: -2 Cervix Position: mid BISHOPS Score(Cervical Ripeness Score): 7 Contractions Monitor Mode: External Contraction Frequency(min): rare Intensity: Mild Fetus A Monitor: External (US) Heart Rate Baseline: 125 Variability: Moderate (6-25 BPM) Categories: Category I Accelerations: 15 X 15 Decelerations: None Amniotic Membrane Status: Ruptured Assessment and Plan Assessment and plan (1) PROM with onset of labor within 24 hours of rupture: Status: Acute Assessment and plan: A: PROM x13 hrs, no labor Category 1 tracing, multip w/isbell score 6-7 Pt states she is ready for IOL Adequate GBS prophylaxis (x3 doses) P: Awaiting staff ratio that will allow for IOL this morning Plan 1 dose PO misoprostel, then pitocin if indicated Anticipate Objective Abnormal lab results 04/03/23 Range/Units 18:16 WBC 11.35 H (4.4-10.8) 10^3/uL Hct 34.9 L (36.0-46.0) % MPV 12.3 H (8.0-11.0) fL Temp Pulse Resp BP 97.7 F 97 H 20 117/69 04/04/23 03:44 04/04/23 03:35 04/03/23 18:42 04/04/23 03:35 Laboratory Results WBC 11.35 10^3/uL (4.4-10.8) H 04/03/23 18:16 RBC 4.08 10^6/uL (3.93-5.22) 04/03/23 18:16 Hgb 11.4 g/dL (11.2-15.7) 04/03/23 18:16 Hct 34.9 % (36.0-46.0) L 04/03/23 18:16 MCV 86 fL (80-95) 04/03/23 18:16 MCH 27.9 pg (27.0-33.0) 04/03/23 18:16 MCHC 32.7 % (32.0-36.0) 04/03/23 18:16 RDW 13.9 % (11.7-14.6) 04/03/23 18:16 Plt Count 185 10^3/uL (130-400) 04/03/23 18:16 MPV 12.3 fL (8.0-11.0) H 04/03/23 18:16 Patient ABO/Rh B Positive 04/03/23 18:16 Antibody Screen NEGATIVE 04/03/23 18:16 Vital Signs Reviewed: Yes Objective Narrative Objective Narrative: Unable to begin IOL for PROM due to staffing issues Subjective Interval history since last seen: Pt slept few hours overnight, contractions have not increased and pt states she is comfortable. Reviewed IOL options, pt prefers 1 dose of misoprostel before starting pitocin induction.
[2023-04-04] MEDS: miSOPROStol 50 MCG TAB PO (09:04)
--- NOTE | 2023-04-04 12:13 | PLAC_PTH ---
PATIENT: Kassandra Ortiz LOC: OBS U#:[id number] AGE/SX: 27/F ROOM: OBS.301 RE04/03/[address]: Gladis Ruff : 1995 BED: B DIS: 04/07/2023 SPEC #: [id number] RECD: 04/06/23 12:15 STATUS: ADRIANE REQ #: [id number] EDELMIRA: 04/04/23 12:[address]: Gladis Ruff DEPT: Surgical Specimen RECD BY: Herlinda Mcnamara ENTERED: 04/06/23 12:17 SP TYPE: PLAC OTHR DR: Ashyl Hood Tissues: 1 - PLACENTA (3RD TRIMESTER) Procedures: GROSS AND MICRO LEVEL 5 Comments: [id number]
[2023-04-04] MEDS: Oxytocin/Normal Saline 30 UNIT/500 ML BAG 2 UNITS IV (13:02)
[2023-04-04] MEDS: Normal Saline 50 ML (16:45)
[2023-04-04] MEDS: Lactated Ringers 1,000 ML 125 ML IV ×2 (18:46→23:41)
--- NOTE | 2023-04-04 18:46 | W.PM.OBNL1 ---
Date of service: 04/04/23 Time of Service: 18:47 Informed Consent Informed Consent: Induction of Labor and Risk,Benefits,Alternatives Discussed Pelvic Exam Dilation: 4 Effacement (%): 90 station: -1 Cervix Position: mid Consistency: medium Contractions Monitor Mode: External Contraction Frequency(min): q2-3 Contraction Duration(sec): 50-70 Intensity: Moderate Fetus A Monitor: External (US) Heart Rate Baseline: 125 Variability: Moderate (6-25 BPM) Categories: Category I Accelerations: 15 X 15 Decelerations: None Amniotic Membrane Status: Ruptured Assessment and Plan Assessment and plan (1) Encounter for induction of labor: Status: Acute Assessment and plan: A: IOL for PROM >12 hrs Category 1 tracing GBS adequately prophylaxed Pitocin started @ 1300, now @ 10 mu/min P: Labor increasing and progress noted Continue current plan of care Comfort measures as pt desires Anticipate (2) PROM with onset of labor more than 24 hours following rupture: Status: Acute Assessment and plan: Misoprostel 50 mcg PO given @ 0900 Pitocin induction begun @ 1300 (3) Group B Streptococcus carrier, +RV culture, currently : Status: Acute Assessment and plan: Adequate prophylaxis, PCN q 4 hrs IV until delivery. Objective Vital Signs Reviewed: Yes Subjective Interval history since last seen: Breathing through contractions, using various positions such as kneeling on the floor by the bed or sitting on physioball, FOB providing effective support.
--- NOTE | 2023-04-04 19:54 | W.ANESPRE ---
General Info Date of Service Date Performed: 04/04/23 Height: 5 ft 1.81 in Weight: 77.927 kg Body Mass Index (BMI): 31.6 Meds Allergies and Home Medications Allergies Allergy/AdvReac Type Severity Reaction Status Date / Time No Known Allergies Allergy Unverified 04/02/23 10:31 Home Medication Medication Instructions Recorded vits no.126-ferrous fum 1 tab PO DAILY 01/09/22 28 mg iron-folic acid 800 mcg tablet (Classic ) levothyroxine 50 mcg tablet 50 mcg PO DAILY #90 tabs 07/21/22 ferrous sulfate 324 mg (65 mg 324 mg PO DAILY #30 tabs 03/17/23 iron) tablet,delayed release Current Visit Medications: Current Medications Generic Name Dose Route Start Last Admin Trade Name Freq PRN Reason Stop Dose Admin Fentanyl/Ropivacaine 200 ml 04/04/23 19:45 Fentanyl/Ropivacaine 2 Mcg/Ml And 0.1% 200 Ml [place] Cassette EP DIRECTED ERIC Sodium Chloride 500 mls @ 0 mls/hr 04/03/23 18:04 Saline 500ml Bag IV PRN PRN As Directed Ringer's Solution 1,000 mls @ 125 mls/hr 04/03/23 19:45 04/04/23 18:46 IV 125 mls/hr INFUSION ERIC Administration Penicillin G Potassium 3,000, 50 mls @ 100 mls/hr 04/04/23 08:00 04/04/23 17:33 000 units/ Sodium Chloride IVPB 100 mls/hr Q4H ERIC Administration Oxytocin/Sodium Chloride 30 unit in 500 mls @ 2 mls/hr 04/04/23 11:00 04/04/23 19:49 Pitocin/Normal Saline IV 5 milliunits/min INFUSION ERIC 5 mls/hr Titration Protocol 2 MILLIUNITS/MIN IV Miscellaneous Supplies 1 each 04/03/23 18:15 Iv Access IV DIRECTED ERIC Levothyroxine Sodium 50 mcg 04/05/23 06:00 Levothyroxine 50 Mcg Tab PO DAILY@0600 ERIC Sodium Chloride 0 ml 04/03/23 18:04 04/04/23 07:46 Normal Saline Flush 10 Ml Syr IVP 10 ml PRN PRN Administration Zolpidem Tartrate 5 mg 04/03/23 19:42 Zolpidem 5 Mg Tab PO HS PRN PRN PFSH Active Problems Active Problems: Problem Status Onset Code PROM with onset of labor within 24 hours of rupture O42.00 Group B Streptococcus carrier, +RV culture, currently O99.820 Anemia affecting O99.019 Z34.90 Systolic ejection murmur R01.1 Medical History Medical History (Updated 04/04/23 @ 18:50 by Kaye Sapp) Irregular menses 06/01/2017. Normal prolactin elevated TSH. Started Levoxyl 25 mcg daily. Missed 01/30/2022 nonviable IUP at 6W0D EGA. Patient counseled regarding options for expectant management versus D&C. PROM with onset of labor within 24 hours of rupture Surgical History Surgical History Status post dilation and curettage Dilation and curettage for completion of miscarriage performed 03/12/2022. [place] teeth extracted Tobacco Smoking/Tobacco Use Status: Never Passive smoking exposure: Yes Second hand exposure: Yes Alcohol Alcohol Intake: current Alcohol intake frequency: a few times a month Alcohol type: beer and wine Substance Use Substance use: Socially Substance use type: marijuana Counseling provided: provider counseling Prental History History 5 Para 1 Hx # Term Pregnancies 1 Multiple births 0 Hx # Pregnancies 0 Ectopic pregnancies 0 AB induced 0 Hx Number of Living Children 1 AB spontaneous 3 Past Pregnancies Del. Date GA/Weeks # Preg Succ Route Wgt Sex Labor Lgth Anesthesia Location [facility] 12/20/15 6 No No 05/27/17 6 No No 05/06/18 38 No Yes vaginal 2806.603 g Female 33 hours 55 min regional Keerthi Sapp CNM 02/22/22 10 No No Delivery Date: 12/20/15 Last Updated by: Rosemary Nickerson CNM SAB without complication Delivery Date: 05/27/17 Last Updated by: Rosemary Nickerson CNM SAB without complications Delivery Date: 05/06/18 Last Updated by: Kaye Sapp IOL for PROM, epidural at 24 hrs labor. Kathia Delivery Date: 02/22/22 Last Updated by: Rosemary Vivar CNM D and C Vital Signs and Lab Results Vital Signs Most Recent Vital Signs in EMR: Most Recent Vital Signs Temp Pulse Resp BP 36.4 C L 98 H 14 113/64 04/04/23 19:00 04/04/23 19:03 04/04/23 12:37 04/04/23 19:03 Lab Results 04/03/23 18:16 Blood Type / Crossmatch: Patient ABO/Rh B Positive 04/03/23 Antibody Screen NEGATIVE 04/03/23 Complete Blood Count: White Blood Count 11.35 10^3/uL (4.4-10.8) H 04/03/23 18:16 Red Blood Count 4.08 10^6/uL (3.93-5.22) 04/03/23 18:16 Hemoglobin 11.4 g/dL (11.2-15.7) 04/03/23 18:16 Hematocrit 34.9 % (36.0-46.0) L 04/03/23 18:16 Platelet Count 185 10^3/uL (130-400) 04/03/23 18:16 Complete Metabolic Panel: No Data to Display Liver Function Panel: No Data to Display Coagulation Panel: No Data to Display Cardiac Panel: No Data to Display Arterial Blood Gas: No Data to Display Venous Blood Gas: No Data to Display Pancreas Panel: No Data to Display Thyroid Panel: Thyroid Stimulating Hormone (TSH) 0.90 uIU/mL (0.36-3.74) 03/26/23 11:30 Infectious Disease: No Data to Display Blood Cultures: No Data to Display Toxicology Panel: Urine Amphetamines Screen Negative (Negative) 03/17/23 14:45 Urine Benzodiazepines Screen Negative (Negative) 03/17/23 14:45 Urine Barbiturates Screen Negative (Negative) 03/17/23 14:45 Urine Cocaine Screen Negative (Negative) 03/17/23 14:45 Urine Methadone Screen Negative (Negative) 03/17/23 14:45 Urine Opiates Screen Negative (Negative) 03/17/23 14:45 Ur Tricyclic Antidepressants Screen Negative (Negative) 03/17/23 14:45 Ur Tetrahydrocannabinol (THC) Scrn Negative (Negative) 03/17/23 14:45 Panel: No Data to Display Anesthesia Assessment and Plan Anesthesia History Personal History: No History of Anesthesia Complications Family History: No Family History of Anesthesia Complications Exercise Tolerance Exercise Tolerance: Metabolic Equivalents>4 Pertinent Negatives Pertinent Negatives: No Major Cardiovascular Symptoms or Complaints, No Major Pulmonary Symptoms or Complaints and No History of CVA/TIA Cardiac & Pulmonary Exam Cardiac Exam: Normal S1/S2 Heart Sounds Pulmonary Exam: Clear Bilateral Breath Sounds Implantable Cardiac Device Does patient have a Pacemaker or an ICD?: No Airway Exam Known Difficult Airway: No Mallampati Class: 2 Mouth Opening: Normal (> 3cm) Thyromental Distance: Greater than 3 cm Neck Range of Motion: Full ROM Neck Circumference: Normal Teeth Condition: Normal Dentition ASA Classification ASA Score: ASA 2 Emergency Case?: No NPO Status NPO Status: NPO Clears >2 hours, Solids >8 hours Status Status: Confirmed Anesthesia Plan Resuscitation Status: Full Code Anesthesia Technique: Labor Epidural Airway Planned: Natural Airway Monitors Used: Standard Monitors
[2023-04-04] MEDS: FentaNYL/ROPIvacaine 2 mcg/ml and 0.1% 200 ML CADD Cassette EP (20:10)
[2023-04-04] MEDS: Bupivacaine 0.25% Pres-Free 10 ML VIAL EP (20:12)
--- NOTE | 2023-04-04 20:37 | W.ANESNEU ---
Epidural/Spinal Catheter Date Performed: 04/04/23 Procedure Start: 20:14 Procedure Stop: 20:39 Requesting Provider: Kaye Sapp Procedure Location: Obstetrics Reason Performed: Labor Epidural Standard Monitors Applied: Blood Pressure, SpO2 and See EMR for corresponding vital signs Patient Position: Sitting Sedation Given (Indicate Dose Given): No Sedation given Patient Mental Status: Awake Sterility: Hand Hygiene, Surgical Cap, Surgical Mask, Sterile Gloves, Sterile Drape/Sheet and Chlorhexidine Procedure Location: L3-L4 Interspace Epidural Needle: Tuohy 18 Gauge Needle Length: 3.5 Inch Needle Approach: Midline Epidural Procedure: Skin Prepped, Sterile Drape Placed, 1% Lidocaine to skin and subcutaneous tissue with 25G needle, Tuohy Needle placed, BHARATI to Saline Used, Epidural Catheter Placed, Negative Heme, Negative CSF Flow and Tuohy Needle Removed Catheter Placed?: Catheter Placed Test Dose (Indicate Dose Given): 3ml 1.5% Lidocaine with 1:200K Epinephrine Given and Negative Test Dose Loss of Resistance Depth (cm): 6 Catheter depth at skin (cm): 11 Dressing: [place] Dressing Placed and Mastisol Used Epidural Provider Bolus (Indicate Dose Given): Total bolus dose given in 3-5 ml divided doses and Total Bupivacaine 0.25% Given (ml) Dose:: 5 ml Additives (Indicate Dose Given ): Fentanyl PF Dose:: 100 mcg Infusion Medication: Medication Infusion Began Medication Infusion: Ropivacaine 0.1% with Fentanyl 2mcg/ml Maintenance Infusion Rate (ml/hour): 10 PCEA Bolus Dose (ml): 5 Post Procedure Pain score (0-10): 0 Block Level: N/A Paresthesia: None Ultrasound: Not Used Number of Attempts (See previous attempts in note section): 1 Procedure Tolerated: No Complications and Patient tolerated well Procedure Outcome: Successful Performed By: Naomi Simpson
--- NOTE | 2023-04-04 20:43 | W.PM.OBNL1 ---
Date of service: 04/04/23 Time of Service: 20:43 Informed Consent Informed Consent: Induction of Labor, Regional Anesthesia and Risk,Benefits,Alternatives Discussed Pelvic Exam Dilation: 4.5 (prior to epidural placement) Effacement (%): 90 station: 0 Contractions Monitor Mode: External Contraction Frequency(min): 2-3 Intensity: Moderate/Strong Fetus A Heart Rate Baseline: 120 Variability: Moderate (6-25 BPM) Categories: Category I Accelerations: Present Decelerations: None Amniotic Membrane Status: Ruptured (x 28 hrs) Assessment and Plan Assessment and plan (1) Encounter for induction of labor: Status: Acute Assessment and plan: A: Epidural anesthesia IOL for PROM, prolonged P: Resume pitocin for adequate labor Anticipate Objective Vital Signs Reviewed: Yes Objective Narrative Objective Narrative: Pitocin reduced from 10 to 5 mu/min during anesthesia induction Category 1 tracing Normotensive and afebrile Subjective Interval history since last seen: Pt requested epidural anesthesia, GRAVITY PROSPECTING OBSERVER to unit and anesthesia initiated with success, pt is relaxed and pleased.
--- NOTE | 2023-04-04 21:36 | W.PM.OBNL1 ---
Date of service: 04/04/23 Time of Service: 21:36 Informed Consent Informed Consent: Induction of Labor, Regional Anesthesia and Risk,Benefits,Alternatives Discussed Pelvic Exam Dilation: 8 Effacement (%): 100 station: 0 Contractions Monitor Mode: External Contraction Frequency(min): q2-3 Intensity: Moderate/Strong Fetus A Monitor: External (US) Heart Rate Baseline: 130 Variability: Moderate (6-25 BPM) Categories: Category II Accelerations: Present Decelerations: Variable Recurrence: Intermittent Amniotic Membrane Status: Ruptured (forebag AROM'ed, scant amt clear fluid returned) Assessment and Plan Assessment and plan (1) Encounter for induction of labor: Status: Acute Assessment and plan: A: Approaching 2nd stage Category 2 tracing d/t recent appearance of variables Tracing remains overall reassuring with delivery expected shortly P: Anticipate Objective Vital Signs Reviewed: Yes Objective Narrative Objective Narrative: Pt relaxed, dozing Category 2 tracing due to periodic variables noted Tracing improves in lateral positioning Subjective Interval history since last seen: Pt reports feeling pelvic pressure but no urge to bear down.
[2023-04-05] VITALS (20 sets, daily range): BP systolic 94–122; BP diastolic 54–84; PULSE 83–129; RESP 11–25; TEMP 36.2–37; O2SAT 98–100
--- NOTE | 2023-04-05 | DI.RAD_ITS ---
Exam(s) XR ABDOMEN FLAT PLATE EXAM: XR ABDOMEN FLAT PLATE CLINICAL HISTORY: UNCOUNTED PROCEDURE. TECHNIQUE: 2D digital imaging was performed. COMPARISON: No exams were available for comparison FINDINGS: Single AP supine portable view of the abdomen. The bowel gas pattern is nonspecific in the supine position. There is no radiopaque foreign body. N o significant osseous findings. IMPRESSION: No radiopaque foreign body. DATA REPOSITORY: RADIATION DOSE DELIVERED:
--- NOTE | 2023-04-05 00:32 | OBVDS_ITS ---
Date of service: 04/05/23 Time of Service: 23:15 OB Labor/ Delivery Information Baby A Delivery Delivery Method: Spontaneaous Presentation: Cephalic Cephalic Position: Vertex Vertex Position: Left Occipital Anterior Breech Position: N/A Cord Description-Baby A: 3 Vessels Amniotic Fluid: Clear Estimated Blood Loss: 550 QBL prior to moving to the OR Delivery Outcome: Liveborn Transferred: Other (Was S2S with mother for first hour then with father while mother was taken to OR for retained placenta) Note: Shortly after ROM of forebag pt reported urges to push, vaginal exam for anterior lip with vtx @ +2 station which was easily reduced manually with pt pushing x1. Straight cath done for 200 ml clear yellow urine and 2nd stage huddle completed, of a vigorous male over intact perineum, shoulders came easily, left nuchal hand noted, infant placed in mother's arms immediately, cord ceased pulsating at 4 minutes of age, was clamped and cut by FOB, cord blood collected. pitocin IV bolus started, minimal vaginal bleeding, fundus firm below umbilicus. Vulva and vagina inspected and found to be without laceration. Apgars 9/9, weight 3350 gms, strong family bonding observed. Periodic gentle cord traction applied with fundal massage but placenta failed to detach. After [address] Ruff who was in the unit was notified of delayed placental delivery, and she arrived bedside to evaluate. At this time QBL was 250 ml in underdrape. Third stage management turned over to Dr. Ruff who attempted removal of placenta without success, decision made to proceed to the OR per Dr. Ruff, see MD note. Front Office Spec on unit paged OR team, while awaiting transfer to OR an additional QBL noted of 300ml with pt developing hypotension, RN paged MD and CNM to room. TXA ordered and administered, IVF bolus started, transfer to OR expedited. Providers Doctor: Gladis Ruff Nurse Power Shovel Mechanic: Kaye Sapp Senior Dot Net Developer: Naomi Simpson Nurse: Amanda Sapp Nurse: Nikia Gonzalez Labor/Delivery Information Number of Babies in Womb: 1 Steroids Given: None Reason Steroids Not Administered: N/A Group Beta Strep: Positive Antibiotics Administered: Yes Number of Doses of Antibiotics: 6 Rubella Status: Immune Blood Type: B+ Varicella Immunity: Immune Medication in Delivery: yes Maternal Complications: Hemorrhage (with retained placenta) Shoulder Dystocia: No Stages of Labor Onset of Labor Date: 04/05/23 Onset of Labor Time: 17:00 Complete Dilatation Date: 04/05/23 Complete Dilatation Time: 21:46 Labor - Stage 1 Duration: 4 hours and 46 minutes ROM Baby A: 04/03/23 ROM Baby A: 17:00 ROM Total Time- Baby A: [id number] Infant Delivery Date-Baby A: 04/04/23 Delivery Time-Baby A: 22:08 Labor Stage 2 Duration: -1418 minutes Total Length of Labor-Baby A: -1132 minutes Placenta Cultured: No Placenta Status: Retained (to OR) Baby A Gestational Age in Weeks/Days: 38 Weeks and 5 Days Score-1 Minute Interval(Baby A) Heart Rate-1 minute: 100 BPM or Greater Respiratory Effort- 1 minute: Spontaneous/Strong Cry Muscle Tone-1 minute: Active Movement Reflex Response-1 minute: Prompt Response Color-1 minute: Bluish Hands or Feet Score-5 Minute Interval(Baby A) Heart Rate- 5 minute: 100 BPM or Greater Respiratory Effort-5 minute: Spontaneous/Strong Cry Muscle Tone-5 minute: Active Movement Reflex Response-5 minute: Prompt Response Color-5 minute: Bluish Hands or Feet Procedure Procedures: Control of Hemorrhage (see OR note), Cord Blood Collection and Retained Placenta Extraction (to OR for extraction) Interventions Induction Indication: Premature Rupture of Membranes, Type of Induction: Misoprostol (50 mcg dose x1) administration: Oral and Pitocin,
--- NOTE | 2023-04-05 00:54 | DI.VRAD_ITS ---
PROCEDURE INFORMATION: Exam: XR Abdomen Exam date and time: 04/05/2023 12:19 AM Age: 27 years old Clinical indication: Screening exam; Post surgical status; Obgyn requested adb image post emergency surgery; Prior surgery; Surgery date: Post-operative (0-2 days); Surgery type: Unknown TECHNIQUE: Imaging protocol: Radiologic exam of the abdomen. Views: Frontal supine view of the abdomen. 1 View. COMPARISON: OB US 2-3 TRIMESTER TRANSABD*P 12/23/2017 3:48 PM FINDINGS: Gastrointestinal tract: Nonspecific bowel gas pattern. Organs: Appearance suggesting an enlarged uterus or distended bladder rising out of the pelvis. Recommend clinical correlation. Bones/joints: Mild degenerative lumbar spine and levoscoliosis. Soft tissues: No intra-abdominal or pelvic retained surgical material. IMPRESSION: 1. No retained surgical material. 2. Nonspecific bowel gas pattern. 3. Appearance suggesting a possibly enlarged uterus or distended bladder arising superiorly from the pelvis. Recommend clinical correlation 4. Degenerative lumbar spine changes. Dictated and Authenticated by: Jonh Narvaez MD. Ordering:MICHELL Griffith MD
--- NOTE | 2023-04-05 01:19 | OBCE_ITS ---
Date of service: 04/05/23 Time of Service: 01:20 Assessment and Plan Assessment and plan (1) Retained placenta: Status: Acute History of Present Illness History of Present Illness Chief Complaint: retained placenta Narrative: I was asked to present the the Center by Verónica Sapp CNM to assist with retained placenta after a spontaneous vaginal delivery of a viable male infant at 22:08 on 04/04/23. Oxytocine had been administered with the delivery of the per protocol. I discussed the case with the the CNM and assumed care of the pt at 22:37. Attempts a gentle cord traction while supporting the lower uterine segment in conjunction with maternal expulsive efforts were unsuccessful. The tip of the placenta was palpable in the ANTHONY but I was unable to grasp it to extract it. The pt's vaginal bleeding increased and Traxemic Acid was administered and an IV fluid bolus given. Pt was placed in trandalenberg position and the OR crew notified. I obtained a verbal consent from the patient and her partner to perform a manual extraction of the placenta with the risk of infection, damage to the uterus and need for hysterectomy explained as possible complications to the surgery. She was transported to the OR at 23:22. Consults Consult date: 04/04/23 Requesting physician: Kaye [facility] All Active Problems (Updated 04/05/23 @ 01:40 by Gladis Ruff MD) Retained placenta (Acute) PROM with onset of labor more than 24 hours following rupture (Acute) Encounter for induction of labor (Acute) Group B Streptococcus carrier, +RV culture, currently (Acute) Anemia affecting (Acute) (Acute) Systolic ejection murmur (Chronic) left base. Medical History (Updated 04/05/23 @ 01:40 by Gladis Ruff MD) Irregular menses 06/01/2017. Normal prolactin elevated TSH. Started Levoxyl 25 mcg daily. Missed 01/30/2022 nonviable IUP at 6W0D EGA. Patient counseled regarding options for expectant management versus D&C. PROM with onset of labor within 24 hours of rupture Surgical History Status post dilation and curettage Dilation and curettage for completion of miscarriage performed 03/12/2022. [place] teeth extracted Family History Mother Depression Hyperlipidemia Father No problems noted. Sister Depression Brother Depression Maternal Grandfather Alcohol abuse Asthma Paternal Grandfather No problems noted. Maternal Grandmother No problems noted. Paternal Grandmother No problems noted. Daughter No problems noted. 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 Pets and animals: Yes (Chickens) Pets and animals: cat(s) and dog(s) Sexually active: Yes Do you think of yourself as: straight/heterosexual Current gender identity: female What is your relationship status?: How often do you talk on the phone with friends or family?: twice per week How often do you get together with friends or relatives?: twice per week How often do you attend oriental orthodox or taoism services?: 1-3 times per year Do you belong to any clubs or organized social groups?: yes Panel score (0-1 are the most socially isolated patients): 3 What type of physical activity do you participate in: walking and yoga Duration: 30-45 minutes/day Frequency: 5-6 times per week Yee/Rastafarian: No preference Special yee needs: No Seatbelt use: always Helmet use: Yes Helmet use: always Drive intox or ride w/intox driver's license examiner: No Working smoke detector in home: Yes Fire extinguisher in home: No Carbon monox detector in home: Yes Firearms in home: Yes Do you feel safe at home: Yes Do you feel safe in your relationship?: Yes Additional Social history: Enjoys arts and crafts, hiking. History History 5 Para 1 Hx # Term Pregnancies 1 Multiple births 0 Hx # Pregnancies 0 Ectopic pregnancies 0 AB induced 0 Hx Number of Living Children 1 AB spontaneous 3 Past Pregnancies Del. Date GA/Weeks # Preg Succ Route Wgt Sex Labor Lgth Anesth esia Location Prov Complic 12/20/15 6 No No 05/27/17 6 No No 05/06/18 38 No Yes vaginal 6 lb 3 oz Female 33 hours 55 min region valentina Sapp CNM 02/22/22 10 No No Delivery Date: 12/20/15 Last Updated by: Rosemary Nickerson CNM SAB without complication Delivery Date: 05/27/17 Last Updated by: Rosemary Nickerson CNM SAB without complications Delivery Date: 05/06/18 Last Updated by: Kaye Sapp IOL for PROM, epidural at 24 hrs labor. Kathia Delivery Date: 02/22/22 Last Updated by: Rosemary Vivar CNM D and C Results Last Vital Signs Temp 98.2 F 04/04/23 22:22 Pulse 120 H 04/04/23 23:20 Resp 14 04/04/23 12:37 BP 69/37 L 04/04/23 23:20 Pulse Ox 99 04/04/23 23:19 Labs 04/03/23 18:16 04/04/23 23:53 Labs: Laboratory Results - last 24 hr 04/03/23 18:16 Patient ABO/Rh B Positive Antibody Screen NEGATIVE Crossmatch See Detail
--- NOTE | 2023-04-05 01:41 | ROE_ITS ---
Date of service: 04/05/23 Time of Service: 01:41 Operative Note Operative Note DATE OF PROCEDURE: 04/04/23 PRE-OP DIAGNOSIS: retained placenta. hemorrhage. POST-OP DIAGNOSIS: same PROCEDURE: manual extraction of retained placenta SURGEON: Gladis Ruff ANESTHESIA TYPE: Epidural Refer to Anesthesia Record ESTIMATED BLOOD LOSS: 1,000 PATHOLOGY: other (placental fragments sent to pathology.) COMPLICATIONS: None Patient was transported to: ICU Patient's condition: other (fair) Indications: 27yo female who underwent a spontaneous vaginal delivery of a viable male at 2208 on 04/04/23. The patient had an approximately 1 hour 3rd stage without the successful delivery of the placenta despite gentle cord traction and the tip of the placenta palpable in the lower uterine segment. The patient's uterine bleeding increased and she had a change in her vital signs and she was take to the OR for manual extraction of the placenta. Findings: Placenta was adherent to the posterior uterine wall. It was removed in pieces. 2cm laceration of the cervix at the 12 o'clock position. Procedure Description: Patient was taken the operating room where her existing epidural was redosed and she was transferred to the operating table placed in the dorsolithotomy position in [facility]. Because of the urgent nature of the procedure she was not prepped and draped in the usual sterile fashion. Instead a sterile bivalve speculum was placed in the vagina and a ring forceps was inserted through the cervix into the uterine cavity where small amounts of placental tissue were grasped and removed. However the her bleeding continued to be copious and decision was made to perform a manual extraction with a a ring forcep. Enforcement was placed into the uterine cavity and placental tissue was grasped and removed. A wide banjo curette was then placed in the uterine cavity and all 4 quadrants of the uterine cavity were sequentially curetted. A single sterilely gloved hand was placed inside the uterine cavity which allowed the placental tissue to be grasped and delivered in larger pieces. The vaginal crit was then once again used curette the cavity and the cavity was then probed digitally in all 4 quadrants of the upper cavity and the lower uterine segment was smooth without retained placental tissue. A weighted speculum was placed in the vagina and the cervix was inspected with the cervical laceration repaired us ing running suture of 0 Vicryl. At the completion of the procedure the uterus was firm to use fingerbreadths below the umbilicus with minimal uterine bleeding. Patient was then placed in the dorsal supine position. An abdominal x-ray was performed per protocol and no retained instruments or packing was noted. Patient was then transported to ICU for observation.
[2023-04-05] MEDS: Lactated Ringers 1,000 ML 150 ML IV (02:25)
[2023-04-05] MEDS: AMPICILLIN/SULBACTAM 3 GM in Normal Saline 100 ML IVPB (02:47)
[2023-04-05] MEDS: Oxytocin/Normal Saline 30 UNIT/500 ML BAG 95 UNITS IV (02:49)
[2023-04-05] MEDS: CLINDAMYCIN 300 MG/50 ML BAG 100 MG IVPB (03:18)
--- NOTE | 2023-04-05 03:51 | NUR.NOTE ---
phenylephrine stopped at 0230. Patient stable maintaining maps greater than 65.:
[2023-04-05 03:55] LABS: HCT 29.2 % (36.0-46.0); HGB 9.8 g/dL (11.2-15.7); MCH 29.3 pg (27.0-33.0); MCHC 33.6 % (32.0-36.0); MCV 87 fL (80-95); MPV 12.1 fL (8.0-11.0); Platelet Count 127 10^3/uL (130-400); RBC 3.34 10^6/uL (3.93-5.22); RDW 14.2 % (11.7-14.6); RDW-SD 45.3 fL; WBC 21.29 10^3/uL (4.4-10.8)
[2023-04-05] MEDS: Levothyroxine 50 MCG TAB PO (05:56)
--- NOTE | 2023-04-05 06:53 | W.PM.OBPNV1 ---
Date of service: 04/05/23 Time of Service: 06:53 Assessment and Plan Assessment and plan (1) Retained placenta: Status: Acute Assessment and plan: Patient underwent manual extraction of placenta fragments were sent to pathology. Currently stable uterine bleeding consistent with normal course. (2) Anemia: Status: Chronic Assessment and plan: Plan at this time is to repeat a hemoglobin at 11 AM. (3) hypovolemia: Status: Acute Assessment and plan: We will continue gentle IV hydration and assist patient out of bed prior to any transfer to the center. (4) hemorrhage, third stage, condition: Status: Acute Assessment and plan: Status post 2 units of packed red blood cells. Unlikely she will need a 3 unit but will continue to follow. Subjective Subjective Interval history: Patient is remained in the ICU overnight. Garner placed to gravity drainage patient is had satisfactory urine output. Patient received 2 units of packed red blood cells during the night. Vasopressor drip has been stopped. Blood pressure stable pulse elevated sinus rhythm. No complaints of pain she is tearful this morning since she lost her current IV and requires another IV insertion. Looking forward to breast-feeding her son. Exam Physical Exam Vital signs: Temp Pulse Resp BP Pulse Ox 97.2 F L 120 H 16 102/60 100 04/05/23 04:25 04/04/23 23:20 04/05/23 04:25 04/05/23 04:25 04/05/23 04:25 Vital Signs Reviewed: Yes Notable Details: Sinus tachycardia Constitutional Constitutional: mild distress (Tearful no complaints of pain.) Respiratory Exam Respiratory Exam: Normal Cardiovascular Exam Cardiovascular Exam: Normal Abdominal Exam Comments: Soft nontender Fundal Exam Fundus: Below Umbilicus Rectal Exam Comments: Rectal exam deferred Exam Perineum: Edematous External: Present normal urethra appearance (Garner catheter to gravity drainage) Extremities Exam Extremity Exam: Edema (Nonpitting generalized edema on upper and lower extremities), Pulses Intact and Normal Capillary Refill Skin Exam Skin Exam: Normal (Pale) Neurological Exam Neurological Exam: Normal DetailedPsychiatric Exam Comments: Tearful this morning appropriate for current circumstances. Patient had questions regarding events around delivery. I spoke to her last evening after her arrival to the ICU and answered questions we will continue to follow Results Hemoglobin/Hematocrit: Hgb 9.8 g/dL (11.2-15.7) L 04/05/23 03:45 Hct 29.2 % (36.0-46.0) L 04/05/23 03:45 Abnormal Lab Findings: Abnormal Labs 04/03/23 04/03/23 04/05/23 18:16 18:16 03:45 WBC 11.35 H 21.29 H RBC 3.34 L Hgb 9.8 L Hct 34.9 L 29.2 L Plt Count 127 L MPV 12.3 H 12.1 H Crossmatch See Detail Additional Findings Results: 1400 cc of clear scooter urine out during the night. Garner remains in place
[2023-04-05 07:39] LABS: HCT 28.8 % (36.0-46.0); HGB 9.8 g/dL (11.2-15.7); MCH 29.4 pg (27.0-33.0); MCV 87 fL (80-95); MPV 12.2 fL (8.0-11.0); Platelet Count 128 10^3/uL (130-400); RBC 3.33 10^6/uL (3.93-5.22); RDW 14.3 % (11.7-14.6); RDW-SD 45.1 fL; WBC 19.23 10^3/uL (4.4-10.8)
[2023-04-05 07:57] LABS: ALT 29 U/L (14-59); AST 55 U/L (15-37); Albumin 1.8 g/dL (3.4-5.0); Alkaline Phosphatase 132 U/L (46-116); Anion Gap 9.4 mmol/L (3-11); BUN 6 mg/dL (7-18); Bilirubin, Total 0.4 mg/dL (0.2-1.0); CO2 20.6 mmol/L (21.0-32.0); CREATININE 0.5 mg/dL (0.55-1.02); Calcium 7.8 mg/dL (8.5-10.1); Chloride 106 mmol/L (98-107); Estimated GFR 130.94 (mL/min/1.73m2); Glucose 106 mg/dL (74-106); Potassium 4.3 mmol/L (3.5-5.1); Sodium 136 mmol/L (136-145); Total Protein 4.5 g/dL (6.4-8.2)
[2023-04-05] MEDS: Ibuprofen 600 MG TAB PO ×3 (08:11→20:56)
[2023-04-05] MEDS: Lactated Ringers 1,000 ML 125 ML IV (09:43)
[2023-04-05] MEDS: Acetaminophen 325 MG TAB 650 MG PO (09:51)
--- NOTE | 2023-04-05 11:03 | W.ANESPOSTOP ---
Postoperative Evaluation Date, Time and Location Date Performed: 04/05/23 Time Performed: 09:41 Patient Location: Intensive Care Unit Vital Signs Most Recent Imported Vital Signs: Most Recent Vital Signs Temp Pulse Resp BP Pulse Ox 37.0 C 101 H 18 113/60 100 04/05/23 08:06 04/05/23 10:02 04/05/23 10:02 04/05/23 10:02 04/05/23 04:25 Pain Score Most Recent Pain Score: Most Recent Pain Score Pain Level 3 04/05/23 09:51 Assessment Mental Status: Awake (Alert & Oriented to Patient Baseline) Airway and Respiratory Function: Patent airway with normal (patient baseline) respiratory exam Cardiovascular Function: Hemodynamically Stable Hydration Status: Adequately Hydrated Nausea & Vomiting: No Nausea or Vomiting Pain: Pain is tolerable per patient Peripheral Nerve Block: Patient did not receive a nerve block Postoperative Comments:: S/P 2 units PRBCs, pressors d/c'd around 0230. VSS, tired but comfortable.
[2023-04-05 11:42] LABS: HCT 24.8 % (36.0-46.0); HGB 8.4 g/dL (11.2-15.7); MCH 29.4 pg (27.0-33.0); MCHC 33.9 % (32.0-36.0); MCV 87 fL (80-95); MPV 12.3 fL (8.0-11.0); Platelet Count 128 10^3/uL (130-400); RBC 2.86 10^6/uL (3.93-5.22); RDW 14.2 % (11.7-14.6); WBC 16.62 10^3/uL (4.4-10.8)
[2023-04-05 12:11] LABS: ALT 26 U/L (14-59); AST 50 U/L (15-37); Albumin 1.6 g/dL (3.4-5.0); Alkaline Phosphatase 115 U/L (46-116); BUN 6 mg/dL (7-18); Bilirubin, Total 0.3 mg/dL (0.2-1.0); CREATININE 0.6 mg/dL (0.55-1.02); Calcium 7.5 mg/dL (8.5-10.1); Chloride 104 mmol/L (98-107); Estimated GFR 125.31 (mL/min/1.73m2); Glucose 119 mg/dL (74-106); Potassium 3.6 mmol/L (3.5-5.1); Sodium 135 mmol/L (136-145); Total Protein 4.1 g/dL (6.4-8.2)
--- NOTE | 2023-04-05 14:31 | W.PM.OBPNV1 ---
Date of service: 04/05/23 Time of Service: 14:31 Assessment and Plan Assessment and plan (1) hemorrhage, third stage, condition: Status: Acute Assessment and plan: hemorrhage secondary to retained placenta that approximately 1000 cc blood loss. The placenta was manually removed in the OR using epidural analgesia. She received 3 g of Unasyn and 300 mg of gentamicin at the time of the manual extraction. Of note she had received penicillin for GBS prophylaxis prior to to delivery. Patient was transfused with 2 units of packed red blood cells and most recent hematocrit is stable at 24. She has average amount of rubra lochia. Patient remains tachycardic we will continue to follow. At present time she is diuresing copious amounts of clear of her urine and has stable blood pressure. Plan is to transfer her back to the center and assist her with breast-feeding and activities of daily living. Plan repeat CBC in a.m. (2) Retained placenta: Status: Acute Assessment and plan: Final pathology is pending on placental fragments. (3) Anemia: Status: Chronic Assessment and plan: No plans for further transfusion of packed red blood cells at this time. We will repeat H&H on 04/06/2023. Exam Physical Exam Vital signs: Temp Pulse Resp BP Pulse Ox 98.6 F 90 13 106/54 L 100 04/05/23 08:06 04/05/23 13:01 04/05/23 13:01 04/05/23 13:01 04/05/23 04:25 Vital Signs Reviewed: Yes Notable Details: Sinus tachycardia at resting and during activity Narrative: Patient out of bed bedside chair at the time of my visit. She is awake alert and oriented with minimal pain. She would like to return to the center to be with her . The plan at this time is to discontinue her Garner catheter she has had approxitwelve 100 cc of clear scooter urine in the Garner catheter in the last 8 hours. Epidural remains in place the plan is to remove it. We will saline lock her IV. Constitutional Constitutional: no acute distress Respiratory Exam Respiratory Exam: Normal (Lungs clear to auscultation bilaterally) Cardiovascular Exam Cardiovascular Exam: Normal (Heart regular rate and rhythm, no gallops or murmurs, sinus tachycardia) Abdominal Exam Abdomen: Tender (Mildly tender to palpation.) Fundal Exam Fundus: Below Umbilicus Rectal Exam Rectal Exam: Not Done Exam Patient deferred: external exam Extremities Exam Extremity Exam: Normal, Edema (Generalized 1+ nonpitting edema improved), Pulses Intact, Normal Capillary Refill and Warm to Touch Detailed Back/Spine/Pelvis Exam Back/Spine: Present full ROM; Absent CVA tenderness, paraspinal tenderness, erythema or warmth Skin Exam Skin Exam: Normal Neurological Exam Neurological Exam: Normal Psychiatric Exam Psychiatric Exam: Normal (Smiling, answered questions appropriately. Looking forward to being upstairs with her son and ) Results Hemoglobin/Hematocrit: Hgb 8.4 g/dL (11.2-15.7) L 04/05/23 11:30 Hct 24.8 % (36.0-46.0) L 04/05/23 11:30 Abnormal Lab Findings: Abnormal Labs 04/03/23 04/03/23 04/05/23 18:16 18:16 03:45 WBC 11.35 H 21.29 H RBC 3.34 L Hgb 9.8 L Hct 34.9 L 29.2 L Plt Count 127 L MPV 12.3 H 12.1 H Sodium Carbon Dioxide BUN Creatinine Glucose Calcium AST Alkaline Phosphatase Total Protein Albumin Crossmatch See Detail 04/05/23 04/05/23 04/05/23 07:20 07:20 11:30 WBC 19.23 H RBC 3.33 L Hgb 9.8 L Hct 28.8 L Plt Count 128 L MPV 12.2 H Sodium 135 L Carbon Dioxide 20.6 L BUN 6 L 6 L Creatinine 0.5 L Glucose 119 H Calcium 7.8 L 7.5 L AST 55 H 50 H Alkaline Phosphatase 132 H Total Protein 4.5 L 4.1 L Albumin 1.8 L 1.6 L Crossmatch 04/05/23 11:30 WBC 16.62 H RBC 2.86 L Hgb 8.4 L Hct 24.8 L Plt Count 128 L MPV 12.3 H Sodium Carbon Dioxide BUN Creatinine Glucose Calcium AST Alkaline Phosphatase Total Protein Albumin Crossmatch Procedure Procedures: Control of Hemorrhage (Tranexamic acid .), Retained Placenta Extraction (Performed in the operating room with epidural anesthesia.) and Transfusion (2 units of packed red blood cells received in the immediate postop period.)
--- NOTE | 2023-04-05 20:19 | NUR.NOTE ---
18:45 Reported off to on coming shift that patient had not voided since this nurse took over care at 15:00. Patient had stated that jack was removed in ICU before coming back to the Center. Encouraged patient to try to void at 19:00. Nursing Note:
[2023-04-06] VITALS (10 sets, daily range): BP systolic 112–129; BP diastolic 62–85; PULSE 88–128; RESP 16–18; TEMP 36.4–36.8; O2SAT 98–100
[2023-04-06 07:02] LABS: HCT 23.7 % (36.0-46.0); MCH 29.5 pg (27.0-33.0); MCHC 33.8 % (32.0-36.0); MCV 88 fL (80-95); MPV 12.6 fL (8.0-11.0); Platelet Count 144 10^3/uL (130-400); RBC 2.71 10^6/uL (3.93-5.22); RDW 14.9 % (11.7-14.6); RDW-SD 47.2 fL; WBC 11.91 10^3/uL (4.4-10.8)
[2023-04-06] MEDS: Levothyroxine 50 MCG TAB PO (07:59)
--- NOTE | 2023-04-06 08:18 | OBPPV_ITS ---
Date of service: 04/06/23 Time of Service: 08:19 Assessment and Plan Assessment and plan (1) hemorrhage, third stage, condition: Status: Acute Assessment and plan: day 2 after hemorrhage secondary to retained placenta. Placenta was manually removed in the OR with assistance of epidural analgesia. She received 3 g of Unasyn and 300 mg of gentamicin at the time of the manual extraction. Of note she had received penicillin for GBS prophylaxis prior to to delivery. Patient was transfused with 2 units of packed red blood cells. Patient remains tachycardic at rest with stable blood pressure. She has average amount of rubra lochia. Has been on the center since yesterday and is caring for her . We will have breast feeding counselor visit with the patient later today. (2) Retained placenta: Status: Acute Assessment and plan: Final pathology is pending on placental fragments. (3) Anemia: Status: Chronic Assessment and plan: Patient remains tachycardic she may required repeat unit of packed red blood cells we will discuss later today. Subjective Subjective Interval history: day 2 spontaneous vaginal delivery with retained placenta requiring manual extraction and resulting anemia requiring 2 units of packed red blood cells. Patient has remained afebrile with sinus tachycardia. No postural hypotension. She is breast-feeding successfully. Patient received penicillin for GBS prophylaxis prior to her delivery and dose of Unasyn and gentamicin after delivery and manual extraction. She is successfully breast-feeding. The plan at this time is to offer her 1/3 unit of packed red blood cells in the event that she continues to have sinus tachycardia at rest. Sleep patient has a elevation in ALT AST that is trending downwards we will continue to follow. Patient comments: Pain well controlled and Tolerating diet Patient's Mood: Nervous about going home would prefer to be discharged tomorrow. baby status: Doing well and Nursing well [place] feeding status: Exclusively breast feeding Exam Physical Exam Vital signs: Temp Pulse Resp BP Pulse Ox 98.2 F 88 16 114/62 98 04/06/23 02:36 04/06/23 02:36 04/06/23 02:36 04/06/23 02:36 04/05/23 15:30 Vital Signs Reviewed: Yes Notable Details: Sinus tachycardia at rest Constitutional Constitutional: no acute distress Respiratory Exam Respiratory Exam: Normal Cardiovascular Exam Cardiovascular Exam: Normal Abdominal Exam Abdomen: Other (Nontender to palpation) Fundal Exam Fundus: Below Umbilicus Rectal Exam Rectal Exam: Not Done Exam Perineum: Normal External: Present normal urethra appearance Comments: No edema or bruising no tenderness Extremities Exam Extremity Exam: Normal, Pulses Intact and Normal Capillary Refill; negative Edema or Pallor Back/Spine/Pelvis Exam Back Exam: Not Done Skin Exam Skin Exam: Normal Psychiatric Exam Psychiatric Exam: Normal Results Hemoglobin/Hematocrit: Hgb 8.0 g/dL (11.2-15.7) L 04/06/23 06:45 Hct 23.7 % (36.0-46.0) L 04/06/23 06:45 Abnormal Lab Findings: Abnormal Labs 04/03/23 04/03/23 04/05/23 18:16 18:16 03:45 WBC 11.35 H 21.29 H RBC 3.34 L Hgb 9.8 L Hct 34.9 L 29.2 L RDW Plt Count 127 L MPV 12.3 H 12.1 H Sodium Carbon Dioxide BUN Creatinine Glucose Calcium AST Alkaline Phosphatase Total Protein Albumin Crossmatch See Detail 04/05/23 04/05/23 04/05/23 07:20 07:20 11:30 WBC 19.23 H RBC 3.33 L Hgb 9.8 L Hct 28.8 L RDW Plt Count 128 L MPV 12.2 H Sodium 135 L Carbon Dioxide 20.6 L BUN 6 L 6 L Creatinine 0.5 L Glucose 119 H Calcium 7.8 L 7.5 L AST 55 H 50 H Alkaline Phosphatase 132 H Total Protein 4.5 L 4.1 L Albumin 1.8 L 1.6 L Crossmatch 04/05/23 04/06/23 11:30 06:45 WBC 16.62 H 11.91 H RBC 2.86 L 2.71 L Hgb 8.4 L 8.0 L Hct 24.8 L 23.7 L RDW 14.9 H Plt Count 128 L MPV 12.3 H 12.6 H Sodium Carbon Dioxide BUN Creatinine Glucose Calcium AST Alkaline Phosphatase Total Protein Albumin Crossmatch
--- NOTE | 2023-04-06 11:29 | W.PM.OBPNV1 ---
Date of service: 04/06/23 Time of Service: 11:29 Assessment and Plan Assessment and plan (1) Anemia: Status: Chronic Assessment and plan: plan one more unit of PRBC today. repeat CBC in am. (2) (spontaneous vaginal delivery): Status: Acute Assessment and plan: Plan discharge home 04/07/23. Subjective Subjective Patient comments: No complaints Patient's Mood: good baby status: Doing well, Nursing well and Strong Bonding Observed feeding status: Exclusively breast feeding Narrative: Pt able to ambulate in room and care for infant. Resting HR 120's Exam Physical Exam Vital signs: Temp Pulse Resp BP Pulse Ox 97.7 F 116 H 16 118/75 98 04/06/23 07:45 04/06/23 07:45 04/06/23 07:45 04/06/23 07:45 04/06/23 07:45 Vital Signs Reviewed: Yes Notable Details: sinus tachycardia. Narrative: Since yesterday. I have recommended transfusion of one unit of PRBCs today. Pt is agreeable to the plan. Constitutional Constitutional: no acute distress Respiratory Exam Respiratory Exam: Normal (lungs CTA bilaterally) Cardiovascular Exam Cardiovascular Exam: Normal (HHR w/o gallops or murmurs. Resting tachycardia.) Results Hemoglobin/Hematocrit: Hgb 8.0 g/dL (11.2-15.7) L 04/06/23 06:45 Hct 23.7 % (36.0-46.0) L 04/06/23 06:45 Abnormal Lab Findings: Abnormal Labs 04/03/23 04/03/23 04/05/23 18:16 18:16 03:45 WBC 11.35 H 21.29 H RBC 3.34 L Hgb 9.8 L Hct 34.9 L 29.2 L RDW Plt Count 127 L MPV 12.3 H 12.1 H Sodium Carbon Dioxide BUN Creatinine Glucose Calcium AST Alkaline Phosphatase Total Protein Albumin Crossmatch See Detail 04/05/23 04/05/23 04/05/23 07:20 07:20 11:30 WBC 19.23 H RBC 3.33 L Hgb 9.8 L Hct 28.8 L RDW Plt Count 128 L MPV 12.2 H Sodium 135 L Carbon Dioxide 20.6 L BUN 6 L 6 L Creatinine 0.5 L Glucose 119 H Calcium 7.8 L 7.5 L AST 55 H 50 H Alkaline Phosphatase 132 H Total Protein 4.5 L 4.1 L Albumin 1.8 L 1.6 L Crossmatch 04/05/23 04/06/23 11:30 06:45 WBC 16.62 H 11.91 H RBC 2.86 L 2.71 L Hgb 8.4 L 8.0 L Hct 24.8 L 23.7 L RDW 14.9 H Plt Count 128 L MPV 12.3 H 12.6 H Sodium Carbon Dioxide BUN Creatinine Glucose Calcium AST Alkaline Phosphatase Total Protein Albumin Crossmatch
[2023-04-06] MEDS: Acetaminophen 325 MG TAB 650 MG PO (11:45)
[2023-04-06] MEDS: diphenhydrAMINE 25 MG CAP PO (12:10)
[2023-04-07 05:37] VITALS: BP 113/72; PULSE 102; RESP 16; TEMP 36.5
[2023-04-07 07:07] LABS: HCT 27.5 % (36.0-46.0); MCH 29.3 pg (27.0-33.0); MCHC 32.7 % (32.0-36.0); MCV 90 fL (80-95); Platelet Count 170 10^3/uL (130-400); RBC 3.07 10^6/uL (3.93-5.22); RDW 14.7 % (11.7-14.6); RDW-SD 48.1 fL; WBC 11.29 10^3/uL (4.4-10.8)
[2023-04-07] MEDS: Levothyroxine 50 MCG TAB PO (07:12)
[2023-04-07 07:24] VITALS: BP 120/79; PULSE 91; RESP 17; TEMP 36.5; O2SAT 99
[2023-04-07 07:36] LABS: ALT 35 U/L (14-59); AST 40 U/L (15-37); Alkaline Phosphatase 116 U/L (46-116); Anion Gap 7.7 mmol/L (3-11); BUN 8 mg/dL (7-18); Bilirubin, Total 0.4 mg/dL (0.2-1.0); CO2 25.3 mmol/L (21.0-32.0); CREATININE 0.5 mg/dL (0.55-1.02); Calcium 8.3 mg/dL (8.5-10.1); Chloride 106 mmol/L (98-107); Estimated GFR 130.94 (mL/min/1.73m2); Glucose 84 mg/dL (74-106); Potassium 3.6 mmol/L (3.5-5.1); Sodium 139 mmol/L (136-145); Total Protein 5.1 g/dL (6.4-8.2)
--- NOTE | 2023-04-07 10:00 | W.PM.OBDISCH ---
Date of service: 04/07/23 Time of Service: 10:00 DS: Diagnosis Discharge Diagnosis (1) Anemia: Status: Chronic Asessment and Plan: Patient transfused packed red 3 units blood cells after manual extraction of placenta in the OR. Pulse remained elevated 90-100 range in PP period. BP stable. (2) (spontaneous vaginal delivery): Status: Acute Asessment and Plan: 04/04/23 Male , Estiven Wt 3350gm 9/9. (3) hemorrhage, third stage, condition: Status: Acute Asessment and Plan: Retained placenta required manual extraction in OR . Final pathology pending. (4) Retained placenta: Status: Acute Discharge Plan Disposition Patient Disposition: Home Condition: Improving Discharge Details Reason For Visit: Possible SROM at term Admit Date/Time: 04/03/23 18:04 Admit Provider: Gladis Ruff Attending Provider: Gladis Ruff Primary Care Provider: Ashly Hood Hospital Course Hospital Course: Pt was admitted at term for induction of labor. Progressed in labor, had epidural for labor analgesia. of viable male named Estiven Apgars 9/9. Wt 3350gm. Pt had retained placenta that did not Home Meds and New Rx's Prescriptions: No Action ferrous sulfate 324 mg (65 mg iron) tablet,delayed release (DR/EC) 324 mg PO DAILY Qty: 30 4RF Classic 28 mg iron- 800 mcg tablet 1 tab PO DAILY levothyroxine 50 mcg tablet 50 mcg PO DAILY Qty: 90 3RF Discharge Instructions Additional Instructions: take Ibuprofen (over the counter Motrin) 3 tablets of 200mg dose every 6 hours as needed for pain. May alternate with Acetaminophen (Tylenol) 325mg every 6 hours. Continue to take your vitamin and daily Iron supplement. Make an appointment for an office visit in one week with Dr. Ruff for repeat check on hemoblobin. Stand Alone Forms: BC Instructions, BC Post Vaginal Deliver Activity:: Activity as Tolerated Equipment/Supplies:: No Equipment Needed Diet:: As Tolerated Discharge Orders Discharge Orders: Discharge Order (Routine); Ordered 04/07/23 Ordered By: Gladis Ruff OB:DS Summary Summary Vaginal Delivery Method: Spontaneaous Episiotomy Description: None Laceration Description: None Procedures: Infant will be named Estiven. Contraception Discussed Contraception Discussed: Yes (plans progestin only pill. is considering a vasectomy.) Contraceptive Plan: Control Pill/Patch, Agency Infant Gender-Baby A: Male weight: 7 lb 6.168 oz Status at Discharge Functional status at discharge: independent ambulation Overall status at discharge: patient is progressing back to baseline Mental Status: mental status grossly normal Speech and Movement: speech and movement normal Mood: congruent mood Affect: normal affect Exam Physical Exam Vital signs: Temp Pulse Resp BP Pulse Ox 97.7 F 91 H 17 120/79 99 04/07/23 07:24 04/07/23 07:24 04/07/23 07:24 04/07/23 07:24 04/07/23 07:24 Vital Signs Reviewed: Yes Notable Details: tachycardia persists. 90-100 range Narrative: Patient performing ADLs without dizziness or orthostatic changes. Constitutional Constitutional: no acute distress HEENT Exam HEENT Exam: Normal Neck Exam Neck Exam: Normal Respiratory Exam Respiratory Exam: Normal Cardiovascular Exam Cardiovascular Exam: Normal Abdominal Exam Abdomen: Other Comments: non-tender to palpation Fundal Exam Fundus: Below Umbilicus Rectal Exam Rectal Exam: Not Done Extremities Exam Extremity Exam: Normal and Normal Capillary Refill Back/Spine/Pelvis Exam Back Exam: Normal Skin Exam Skin Exam: Normal Neurological Exam Neurological Exam: Normal Psychiatric Exam Psychiatric Exam: Normal PFSH All Active Problems (Updated 04/06/23 @ 19:15 by Gladis Ruff MD) (spontaneous vaginal delivery) (Acute) hemorrhage, third stage, condition (Acute) hypovolemia (Acute) Anemia (Chronic) Retained placenta (Acute) PROM with onset of labor more than 24 hours following rupture (Acute) Encounter for induction of labor (Acute) Group B Streptococcus carrier, +RV culture, currently (Acute) Anemia affecting (Acute) (Acute) Systolic ejection murmur (Chronic) left base. Medical History (Updated 04/06/23 @ 19:15 by Gladis Ruff MD) Irregular menses 06/01/2017. Normal prolactin elevated TSH. Started Levoxyl 25 mcg daily. Missed 01/30/2022 nonviable IUP at 6W0D EGA. Patient counseled regarding options for expectant management versus D&C. PROM with onset of labor within 24 hours of rupture Surgical History Status post dilation and curettage Dilation and curettage for completion of miscarriage performed 03/12/2022. [place] teeth extracted Family History Mother Depression Hyperlipidemia Father No problems noted. Sister Depression Brother Depression Maternal Grandfather Alcohol abuse Asthma Paternal Grandfather No problems noted. Maternal Grandmother No problems noted. Paternal Grandmother No problems noted. Daughter No problems noted. Social History (Updated 04/07/23 @ 10:13 by Gladis Ruff MD) Smoking/Tobacco Use Status: Never Tobacco: How many years used: 10 Second Hand Exposure: Yes Smoking risk assessment performed?: Yes Alcohol Intake: current Alcohol Intake frequency: a few times a month Alcohol type: beer and wine Drug use: Socially Substance use type: marijuana Counseling provided: provider counseling Adopted: No Caregiver/Support person: No Foster care: No Household members: spouse and children Housing: house Number of Children: 2 Communication Needs: None Education Level: high school Do you need help understanding health information?: Rarely 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 Pets and animals: Yes (Chickens) Pets and animals: cat(s) and dog(s) Sexually active: Yes Do you think of yourself as: straight/heterosexual Current gender identity: female What is your relationship status?: How often do you talk on the phone with friends or family?: twice per week How often do you get together with friends or relatives?: twice per week How often do you attend christianity or oriental orthodox services?: 1-3 times per year Do you belong to any clubs or organized social groups?: yes Panel score (0-1 are the most socially isolated patients): 3 What type of physical activity do you participate in: walking and yoga Duration: 30-45 minutes/day Frequency: 5-6 times per week Yee/Episcopal: No preference Special yee needs: No Seatbelt use: always Helmet use: Yes Helmet use: always Drive intox or ride w/intox rear load truck driver: No Working smoke detector in home: Yes Fire extinguisher in home: No Carbon monox detector in home: Yes Firearms in home: Yes Do you feel safe at home: Yes Do you feel safe in your relationship?: Yes Additional Social history: Enjoys [employer], hiking. History History 5 Para 1 Hx # Term Pregnancies 1 Multiple births 0 Hx # Pregnancies 0 Ectopic pregnancies 0 AB induced 0 Hx Number of Living Children 1 AB spontaneous 3 Past Pregnancies Del. Date GA/Weeks # Preg Succ Route Wgt Sex Labor Lgth Anesthesia Location Prov [facility] 12/20/15 6 No No 05/27/17 6 No No 05/06/18 38 No Yes vaginal 6 lb 3 oz Female 33 hours 55 min regional Keerthi Sapp CNM 02/22/22 10 No No 04/04/23 39 No Yes vaginal 7 lb 6.168 oz Male NATALIE hemorrhage Delivery Date: 12/20/15 Last Updated by: Rosemary Nickerson CNM SAB without complication Delivery Date: 05/27/17 Last Updated by: Rosemary Nickerson CNM SAB without complications Delivery Date: 05/06/18 Last Updated by: Kaye Sapp IOL for PROM, epidural at 24 hrs labor. Kathia Delivery Date: 02/22/22 Last Updated by: Rosemary Vivar CNM D and C Delivery Date: 04/04/23 Last Updated by: MD Estiven Steiner. Retained placenta with manual extraction in OR. 1000cc EBL. Transfused 3 units PRBC. DS: Data Vitals/I&O Vitals and I&O: Vital Signs Temperature 97.7 F 04/07/23 07:24 Temperature Source Oral 04/07/23 07:24 Temperature Source Oral 04/04/23 22:22 Pulse 91 H 04/07/23 07:24 Pulse Rhythm Regular 04/07/23 07:22 Pulse 108 H 04/05/23 14:01 Respiratory Rate 17 04/07/23 07:24 Respiratory Effort Normal, Non-Labored 04/05/23 12:35 Respiratory Depth Normal 04/05/23 12:35 Respiratory Pattern Normal 04/05/23 12:35 Blood Pressure 120/79 04/07/23 07:24 Blood Pressure Mean 83 04/05/23 14:01 Blood Pressure Position Supine 04/05/23 12:35 Pulse Oximetry 99 04/07/23 07:24 Oxygen Delivery Method Room Air 04/07/23 07:24 Oxygen Flow Rate 0 04/07/23 07:24 Pain Level 0 04/06/23 07:45 Comment aware of tachycardia. 04/06/23 07:45 Intake & Output 04/06/23 04/06/23 04/07/23 11:59 23:59 11:59 Intake Total 360 / 1240 880 / 1240 200 / 200 Output Total 500 / 500 Balance -140 / 740 880 / 740 200 / 200 Intake: IV 200 / 200 Oral 360 / 910 550 / 910 Blood Product 330 / 330 Rbc Leuko Reduced Irradiated 330 / 330 Unit [id number] Output: Urine 500 / 500 Other: Urine Color Yellow Yellow Urine Appearance Clear Urine Odor None Comment Patient voiding in toilet. Voiding Methods Toilet Data Completed and Pending Labs on day of discharge: Labs from last 24 hours 04/07/23 04/07/23 04/03/23 06:05 06:05 18:16 WBC 11.29 H RBC 3.07 L Hgb 9.0 L Hct 27.5 L MCV 90 MCH 29.3 MCHC 32.7 RDW 14.7 H Plt Count 170 MPV 12.0 H Sodium 139 Potassium 3.6 Chloride 106 Carbon Dioxide 25.3 Anion Gap 7.7 BUN 8 Creatinine 0.5 L Est GFR (CKD-EPI 2020) 130.94 Glucose 84 Calcium 8.3 L Total Bilirubin 0.4 AST 40 H ALT 35 Alkaline Phosphatase 116 Total Protein 5.1 L Albumin 2.0 L Patient ABO/Rh B Positive Antibody Screen NEGATIVE Crossmatch See Detail
== END 2023-04-07 14:30 | disposition home or self-care (01) | DRG 768 ==
LOC: OBS 04-13 15:55 → ICU 04-13 15:57 → OBS 04-13 15:58
PROVIDERS: Advanced Practice Midwife; Admitting Provider Obstetrics & Gynecology Gynecology; PCP Family Medicine; Visit Provider Obstetrics & Gynecology Gynecology
PROC: 3E0DXGC Introduction of Other Therapeutic Substance into Mouth and Pharynx, External Approach (ICD-10-PCS; CPT 59160; principal; 2023-04-04 23:35)
DX: O42.02 Full-term premature rupture of membranes, onset of labor within 24 hours of rupture (principal); Z37.0 Single live birth; O71.3 Obstetric laceration of cervix; O72.2 Delayed and secondary postpartum hemorrhage; O99.824 Streptococcus B carrier state complicating childbirth; Z3A.38 38 weeks gestation of pregnancy; O99.02 Anemia complicating childbirth; O99.284 Endocrine, nutritional and metabolic diseases complicating childbirth; E03.9 Hypothyroidism, unspecified; O99.344 Other mental disorders complicating childbirth; D64.9 Anemia, unspecified; E86.1 Hypovolemia; R00.0 Tachycardia, unspecified; O99.893 Other specified diseases and conditions complicating puerperium; O90.89 Other complications of the puerperium, not elsewhere classified
CPT/HCPCS: 59160; 59414; 57720; 36415; 36430; 80053; 85027; 86850; 86900; 86901; 86920; 86945; 74018; 85610; 85730; 86644; 88307; J0171; J0295; J2250; J2371; J2540; J3010; P9016

== ENCOUNTER → 2023-08-12 00:30 | Outpatient (CLI) | payer MEDICAID, SELFPAY ==
--- NOTE | 2023-08-12 08:30 | DI.US_ITS ---
APPROVED REPORT EXAM: Comprehensive 2D, Doppler, and color-flow Echocardiogram Patient Location: Out-Patient [employer] Consultant: Lebron Baez RDCS (AE) Indications: murmur Other Information Study Quality: Good Conclusion 1. Normal chamber sizes 2. Anatomically normal valves. Mild TR, no pulmonary hypertension. 3. Normal LV systolic function,EF 60-65%. 4. Normal diastolic function. 5. No intracardiac shunt. 6. No pericardial effusion. Wall motion Left Ventricle The left ventricle is normal size. Left ventricular systolic function is normal. The left ventricular ejection fraction is within the normal range. There is normal left ventricular wall thickness. There is normal LV segmental wall motion. There is no ventricular septal defect visualized. LVEF is 62%. Right Ventricle The right ventricle is normal size. The right ventricular systolic function is normal. The RVSP is 18 .8 mmHg. Atria The left atrium size is normal. The right atrium size is normal. Aortic Valve The aortic valve is normal in structure. Aortic valve is trileaflet. There is no aortic valvular sten osis. No aortic regurgitation is present. Mitral Valve The mitral valve is normal in structure. No evidence of mitral valve stenosis. There is no mitral jasmyne ve regurgitation noted. Tricuspid Valve The tricuspid valve is normal in structure. There is no tricuspid valve stenosis. Mild to moderate tr icuspid regurgitation. Pulmonic Valve The pulmonary valve is normal in structure. There is no pulmonic valvular stenosis. Mild pulmonic reg urgitation. Great Vessels The aortic root is normal in size. The ascending aorta is normal in size. Aortic arch is normal in ca liber. IVC is normal in size and collapses >50% with inspiration. Pericardium There is no pericardial effusion. 2D Dimensions IVSD d PLAX 0.58 cm F: 0.6-1.0 Ao Root d 2.75 cm F: 2.7 - 3.3 LVPW d PLAX 0.60 cm F: 0.6 - 1.0 Ao Asc Diam d 2.80 cm F: 2.3 - 3.1 LVID d PLAX 4.68 cm F: 3.8 - 5.2 LVDs 3.09 cm F: 2.2 - 3.5 LV EF Teichholz 62.9 % FS 34.02 % LV EDV (Teich) 101.3 mL LV ESV (Teich) 37.5 mL Stroke Vol Index (Teich) 40.34 M-Mode TAPSE 2.74 cm (M/F) >1.7 Auto EF LV EDV A4C 90.7 mL LV EDV A2C 136.6 mL LV EDV BP 111.6 mL LV ESV A4C 36.6 mL LV ESV A2C 51.7 mL LV ESV BP 44.1 mL LVEF(%) A4C 59.7 % LVEF(%) A2C 62.2 % LVEF(%) BP 60.4 % LV SV A4C 54.1 ml LV SV A2C 84.9 ml LV SV BP 67.4 ml LV CO A4C 4.5 L/min LV CO A2C 7.9 L/min LV CO BP 6.2 L/min HR A4C 83.15 BPM HR A2C 93.27 BPM LV EDV Index (BP) LA Volume LA Length A4C 3.5 cm LA Length A2C 3.5 cm LA Area A4C s 7.62 cm2 LA Area A2C s 10.23 cm2 LA Vol A4C A-L 14.00 mL LA Vol A2C A-L 25.04 mL LA Vol Biplane A-L 18.8 mL LA Vol/BSA A4C A-L LA Vol/BSA A2C A-L LA Vol/BSA BP A-L 11.9 mL/m2 LA Vol A4C MOD 12.8 mL LA Vol A2C MOD 23.3 mL LA Vol BP MOD 17.1 mL RA Volume RA Area A4C 6.3 cm2 RA ESV A4C (A-L) 12.0mL RA Vol/BSA A4C A-L RA Length A4C 2.8 cm RA ESV A4C (MOD) 11.6mL LV Diastology MV E Vmax 0.90 (0.4-1.3 m/s) MV A Vmax 0.60 (0.4-1.3 m/s) E/A Ratio 1.5 Aortic Valve AoV Vmax 1.36 m/s LVOT Vmax 1.27 m/s AoV Peak Grad 7.4 mmHg LVOT Peak Grad 6.4 mmHg AoV Area (Vmax) 1.58 cm2 LVOT VTI 0.244 m AoV VTI 0.290 m LVOT Mean Grad 4.1 mmHg AoV Mean Kj. 0.98 m/s LVOT SV 41.34 mL AoV Mean Grad 4.3 mmHg LVOT Diam s 1.45 cm AoV Area (VTI) 1.43 cm2 Velocity Ratio 0.93 Mitral Valve MV DT 127 (160-240 msec) MV Vmax TIPS 1.01 m/s MV Mean Grad 1.5 (<2mmHg) MV VTI 0.291 m Pulmonary Valve PV Vmax 1.08 (0.5-1.5 m/s) RVOT Vmax 0.94 m/s PV Peak Grad 4.7 mmHg RVOT Peak Gr. 3.5 mmHg PV Mean Kj 0.72 m/s RVOT VTI 0.201 m PV Mean Grad 2.4 mmHg RVOT Mean Gr. 1.6 mmHg Tricuspid Valve RA Pressure 3.00 mmHg TR Vmax 1.99 m/s TR Peak Grad 15.7 mmHg RVSP (TR) 18.8 mmHg
== END ==
PROVIDERS: PCP Family Medicine; Visit Provider Family Medicine
DX: R01.1 Cardiac murmur, unspecified (principal)
CPT/HCPCS: 93306

== ENCOUNTER 2024-07-01 10:46 | Outpatient (CLI) | payer SELFPAY ==
[2024-07-01 12:56] LABS: TSH (W/Ref FT4) 3.16 uIU/mL (0.36-3.74)
== END 2024-07-01 10:47 | disposition home or self-care (01) ==
LOC: LOS 10:46
PROVIDERS: PCP Family Medicine; Referring Provider Family Medicine; Visit Provider Family Medicine
DX: E03.9 Hypothyroidism, unspecified (principal); R01.1 Cardiac murmur, unspecified; F32.A Depression, unspecified; F41.9 Anxiety disorder, unspecified; Z63.8 Other specified problems related to primary support group; J34.0 Abscess, furuncle and carbuncle of nose
CPT/HCPCS: 36415; 84443